=== PATIENT | male | born 1960 | race Caucasian/White ===

== ENCOUNTER 2024-08-02 17:26 | Inpatient (IN) ==
[2024-08-02 17:59] LABS: Basophils # (auto) 0.07 K/uL (0.00-0.20); Basophils % (auto) 0.5 %; Eosinophils # (auto) 0.15 K/uL (0.00-0.50); Hematocrit (blood only) 45.1 % (42.0-52.0); Immature Granulocytes # (auto) 0.09 K/uL (0.01-0.20); Immature Granulocytes % (auto) 0.6 %; Lymphocytes # (auto) 2.03 K/uL (1.20-3.40); Lymphocytes % (auto) 13.5 %; Mean Corpuscular Hemoglobin 28.7 pg (25.0-34.0); Mean Corpuscular Hgb Conc 33.3 g/dL (32.0-36.0); Mean Corpuscular Volume 86.2 fL (80.0-100.0); Mean Platelet Volume 9.5 fL (9.4-12.4); Monocytes # (auto) 1.41 K/uL (0.11-0.59); Monocytes % (auto) 9.4 %; Neutrophils # (auto) 11.31 K/uL (1.40-6.50); Platelet Count 257 K/uL (130-400); RDW Coefficient of Variation 12.9 % (11.5-14.5); RDW Standard Deviation 40.8 fL (36.4-46.3); Red Blood Count 5.23 M/uL (4.70-6.10); White Blood Count 15.06 K/ul (4.8-10.8)
[2024-08-02] MEDS: ONDANSETRON INJ 2 MG/ML 2 ML VIAL ONE (18:12)
[2024-08-02 18:15] LABS: BUN Creatinine Ratio 15.2 (10-20); Calcium 8.9 mg/dl (8.6-10.3); Potassium 3.9 mmol/L (3.5-5.1)
[2024-08-02 18:25] LABS: Partial Thromboplastin Ratio 0.9; Partial Thromboplastin Time 24 Seconds (21-31); Prothrombin Time 10.5 Seconds (9.0-12.0)
[2024-08-02] MEDS: PROPOFOL IV EMULSION 10 MG/ML 20 ML VIAL IV ONE (18:38)
--- NOTE | 2024-08-02 19:19 | XRay Report ---
EXAM: XR ankle RT 2V CLINICAL HISTORY: Ankle trauma, no prior imaging TECHNIQUE: X-ray images of the right ankle were obtained in anteroposterior (AP), and lateral projections. COMPARISON: No prior studies available for comparison. FINDINGS: Bone Structure: Acute displaced impacted fractures are seen at the distal tibial and fibular shafts. Joint Spaces: Joint spaces are normal. No evidence of joint effusion or subluxation. Soft Tissues: Surrounding Soft tissue swelling is noted. Additional Findings: No signs of osteoarthritis, bone spurs, lytic or sclerotic lesions. IMPRESSION: Acute displaced impacted fractures at the distal tibial and fibular shafts with surrounding soft tissue swelling. Disclaimer: A subtle bone abnormality or fracture may not be readily apparent on X-rays, thus, clinical correlation and further imaging, including follow-up CT, MRI, or follow-up X-rays are advised as needed. Electronically signed by Mack Curran 08-02-2024 7:18 PM
--- NOTE | 2024-08-02 19:36 | Orthopedic Consultation ---
Date of Service August 02, 2024 Assessment & Plan (1) Open fracture of right tibia and fibula: He was seen and examined by Dr. Coker in the ER today as well. We did examine the wound, and new dressing applied with betadine soaked gauze, splint maintained, new steve applied and further reduction was performed which improved the alignment clinically. He will be admitted to hospitalist service. Okay to eat/drink today. NPO after midnight for surgery tomorrow (I and D, ORIF of right tib/fib fracture). Continue ancef q 8 hours, elevated, ice to right leg. History of Present Illness Reason for Consultation: . Requesting Physician: . . Mitchell is a 63 year old patient, history of seizure disorder and mental disability, here with his brother (who is power of disability attorney) and his sister in law. He injured his right ankle about 3 hours ago when he slipped on some wet stairs outside his home. He had a twisting injury, and noticed a wound on the medial side of the ankle. EMS was called and he was brought to [facility] ER. Xrays show a distal tib/fib fracture. He was given ancef already. He did undergo a closed reduction and splinting already. Allergies Allergy/AdvReac Type Severity Reaction Status Date / Time No Known Allergies Allergy Verified 08/02/24 18:55 Home Medications Medication Instructions Recorded Confirmed Type lisinopril 5 mg tablet 5 mg PO DAILY 01/30/24 08/02/24 History omega 0-xtd-wfn-fish oil 1,000 mg 1 cap PO DAILY 08/02/24 08/02/24 History (120 mg-180 mg) capsule (Fish Oil) rosuvastatin 20 mg tablet 20 mg PO HS 08/02/24 08/02/24 History Past Med/Surg History Problem List (Updated 08/02/24 @ 20:15 by Kg Cifuentes MD) Open fracture of right tibia and fibula (Acute) Medical History (Updated 08/02/24 @ 20:15 by Kg Cifuentes MD) No pertinent family history HTN (hypertension) Elevated PSA Surgical History (Updated 08/02/24 @ 20:00 by Kg Cifuentes MD) No pertinent past surgical history Social History Smoking Status: Never smoker Hx Alcohol Use: No Hx Substance Use: No Preferred Language: Eritrean Communication Ability: Effective Customer Support Manager Required: No Beliefs That Will Affect Care: None Current Living Situation: Alone Current Living Situation Comment: Family lives nearby Other Information That Helps Us Care for You: No Feels Safe at Home: Yes Safety Concerns: Feels Safe At This Time Assistive Devices: None Review of Systems All systems reviewed & are unremarkable except as noted in HPI & below. Physical Exam . alert, NAD. Right leg: Splinted. Brisk refill to toes. Sensation intact. Able to move his toes appropriately. We did take down some of the splint and dressing. There is a wound on the posteriomedial aspect of the ankle/distal lower leg. Some bleeding. Palpable dorsalis pedis pulse. Some prominence of the tibia at the fracture, tenting the skin some. This was reduced further and new dressing/steve applied. Results & Data Results & Data Laboratory Results . Diagnostic Findings . xrays of the tib/fib show a displaced distal tib/fib fx. improved alignment on the post reduction xray PG Care Time/CCT Total # of Minutes Spent Total Time Spent with Patient: Total time spent is greater than 50% in coordination of care (as documented) at patient's floor/unit and/or counseling patient: Supervising Physician Co-Signing Physician Notes Patient was seen and evaluated with the PA. Agree with documentation. Coding Level of Care Code 04443 IN/OBS CONSULT LVL 4,60M (57 - DECISION FOR SURGERY) Diagnoses Open fracture of right tibia and fibula S82.201B; S82.401B
--- NOTE | 2024-08-02 19:41 | Emergency Department Note ---
History of Present Illness General Chief complaint: Ankle Pain Stated complaint: FALL, ANKLE FRACTURE Time Seen by Provider: 08/02/24 17:40 Source: EMS History of Present Illness Provider complaint: Right ankle pain Onset (ago): hour(s) less than 1 63-year-old male presents emerged part for right ankle pain. Patient reports within the last hour he was Walking and slipped on some wet steps. He reports he fell and fractured his right ankle. Patient ports he did not hit his head. Patient reports pain in his right ankle. Patient reports no headache neck pain hip pain chest or abdominal pain. Home Medications Medication Instructions Recorded Confirmed Type lisinopril 5 mg tablet 5 mg PO DAILY 01/30/24 08/02/24 History omega 6-ajf-rhq-fish oil 1,000 mg 1 cap PO DAILY 08/02/24 08/02/24 History (120 mg-180 mg) capsule (Fish Oil) rosuvastatin 20 mg tablet 20 mg PO HS 08/02/24 08/02/24 History Allergies Allergy/AdvReac Type Severity Reaction Status Date / Time No Known Allergies Allergy Verified 08/02/24 18:55 Past Med/Surg History Problem List (Updated 08/02/24 @ 20:15 by Kg Cifuentes MD) Open fracture of right tibia and fibula (Acute) Medical History (Updated 08/02/24 @ 20:15 by Kg Cifuentes MD) No pertinent family history HTN (hypertension) Elevated PSA Surgical History (Updated 08/02/24 @ 20:00 by Kg Cifuentes MD) No pertinent past surgical history Social History Smoking Status: Unknown if ever smoked Hx Substance Use: No Preferred Language: Greenlandic Feels Safe at Home: Yes Physical Exam Vital Signs Vital Signs - 24 hr 08/02/24 17:39 08/02/24 17:39 08/02/24 17:39 Temperature 36.8 C 36.8 C Temperature Source Oral Oral Pulse Rate 75 Pulse Rate [Right Finger] 75 75 Pulse Rhythm Regular Pulse Rhythm [Right Finger] Regular Regular Pulse Strength Normal Pulse Strength [Right Finger] Normal Normal Respiratory Rate 20 20 20 Respiratory Effort / Characteristics Non-Labored Non-Labored Non-Labored Respiratory Depth Normal Normal Normal Respiratory Pattern Regular Regular Regular Blood Pressure 130/89 Blood Pressure [Right Arm] 130/89 130/89 Blood Pressure Mean 102 Blood Pressure Mean [Right Arm] 102 102 Blood Pressure Position Lying Blood Pressure Position [Right Arm] Lying Lying Pulse Oximetry 96 96 96 Oxygen Delivery Method Room Air Room Air Room Air Oxygen Flow Rate Sepsis Recent Fever Within 48 Hours No Sepsis New/Unexplained Change in Mental Status N/A Sepsis Action Taken by Nursing No Action Required End Tidal CO2 (18-54mmHg) 08/02/24 17:46 08/02/24 18:16 08/02/24 18:21 Temperature Temperature Source Pulse Rate 75 76 72 Pulse Rate [Right Finger] Pulse Rhythm Regular Pulse Rhythm [Right Finger] Pulse Strength Pulse Strength [Right Finger] Respiratory Rate 20 21 16 Respiratory Effort / Characteristics Respiratory Depth Respiratory Pattern Blood Pressure Blood Pressure [Right Arm] 155/87 H 155/93 H Blood Pressure Mean Blood Pressure Mean [Right Arm] Blood Pressure Position Blood Pressure Position [Right Arm] Pulse Oximetry 96 100 100 Oxygen Delivery Method Room Air Nasal Cannula Oxygen Flow Rate 3 Sepsis Recent Fever Within 48 Hours Sepsis New/Unexplained Change in Mental Status Sepsis Action Taken by Nursing End Tidal CO2 (18-54mmHg) 32 32 08/02/24 18:26 08/02/24 18:31 08/02/24 18:31 Temperature Temperature Source Pulse Rate 64 62 Pulse Rate [Right Finger] 62 Pulse Rhythm Pulse Rhythm [Right Finger] Pulse Strength Pulse Strength [Right Finger] Respiratory Rate 19 24 21 Respiratory Effort / Characteristics Non-Labored Spontaneous Respiratory Depth Normal Respiratory Pattern Blood Pressure Blood Pressure [Right Arm] 132/79 137/81 137/81 Blood Pressure Mean Blood Pressure Mean [Right Arm] 99 Blood Pressure Position Blood Pressure Position [Right Arm] Pulse Oximetry 94 100 98 Oxygen Delivery Method Nasal Cannula Nasal Cannula Nasal Cannula Oxygen Flow Rate 6 2 2 Sepsis Recent Fever Within 48 Hours Sepsis New/Unexplained Change in Mental Status Sepsis Action Taken by Nursing End Tidal CO2 (18-54mmHg) 24 25 08/02/24 18:37 08/02/24 18:42 08/02/24 18:48 Temperature Temperature Source Pulse Rate 64 58 L Pulse Rate [Right Finger] 68 Pulse Rhythm Pulse Rhythm [Right Finger] Pulse Strength Pulse Strength [Right Finger] Respiratory Rate 12 14 12 Respiratory Effort / Characteristics Non-Labored Respiratory Depth Normal Respiratory Pattern Agonal Blood Pressure Blood Pressure [Right Arm] 139/75 115/82 133/84 Blood Pressure Mean Blood Pressure Mean [Right Arm] 100 Blood Pressure Position Blood Pressure Position [Right Arm] Pulse Oximetry 99 100 99 Oxygen Delivery Method Room Air Room Air Room Air Oxygen Flow Rate Sepsis Recent Fever Within 48 Hours Sepsis New/Unexplained Change in Mental Status Sepsis Action Taken by Nursing End Tidal CO2 (18-54mmHg) 37 36 31 Physical Exam HENT: Exam performed. - Head: Normocephalic and atraumatic. NECK: Normal range of motion. Neck supple. No JVD present. No spinous process tenderness present. CV: Normal rate, regular rhythm, normal heart sounds and intact distal pulses. There is no peripheral edema. Palpable radial pulses bue. PULM/CHEST: Effort normal and breath sounds normal. No respiratory distress. No stridor. He has no wheezes. He has no rales. ABD: The abdomen is soft.There is no tenderness. There is no rebound, no guarding. MUSC/SKEL: Pelvis stable. Right lower extremity: Obvious deformity of right ankle with approximately 6 cm laceration of the medial aspect. Palpable DP and PT pulses. Sensation intact. NEURO: Motor and sensation grossly intact Procedures Free Text Procedures Procedure note: Procedure: Reduction of right lower extremity fracture Permit: Procedure, benefit, risks including those of bleeding infection neurovascular injury and alternatives were explained to the patient who voiced understanding information. Questions were sought and answered. Patient agreed to proceed with the reduction. Permit signed and on the chart. Indication: Open right lower extremity fracture Physicians: Esau Description: Patient was sedated. See Dr. Willis's note. Patient was flexed at the knee and then countertraction and traction were applied to improve the patient's anatomic alignment. Complications: none Estimated blood loss: 10 ccs Disposition: Patient will be admitted to the hospital Course Course 174: The patient was evaluated in room C7. A complete history and physical exam was performed Cardiac monitoring: An order was placed for continuous cardiac monitoring. The monitor shows a rate of 80 with sinus rhythm interpreted by me 1837: Patient's lower extremity was reduced. See procedure note. See Dr. Willis sedation note. Spoke with orthopedics Nitish who states he will be in to evaluate the patient. 1915: Dr. Coker and Nitish at bedside evaluated the patient. They request that the patient be admitted to the hospitalist team they will operate on the patient tomorrow Administered Medications Discontinued Medications Ondansetron HCl (Ondansetron Inj 2 Mg/Ml 2 Ml Vial) Confirm Administered Dose 4 mg .ROUTE .STK-MED ONE Stop: 08/02/24 18:11 Last Admin: 08/02/24 18:12 Dose: 4 mg Documented By: LANCE Propofol (Propofol Iv Emulsion 10 Mg/Ml 20 Ml Vial) Confirm Administered Dose 200 mg IV .STK-MED ONE Stop: 08/02/24 18:10 Last Admin: 08/02/24 18:38 Dose: 100 mg Documented By: [id number] Co-signed By: FLORA Medical Decision Making Laboratory Data Attestation: I reviewed the patient's lab results. 08/02/24 17:40 08/02/24 17:40 Lab Results 08/02/24 Range/Units 17:40 WBC 15.06 H (4.8-10.8) K/ul RBC 5.23 (4.70-6.10) M/uL Hgb 15.0 (14.0-18.0) g/dl Hct 45.1 (42.0-52.0) % MCV 86.2 (80.0-100.0) fL MCH 28.7 (25.0-34.0) pg MCHC 33.3 (32.0-36.0) g/dL RDW Std Deviation 40.8 (36.4-46.3) fL RDW Coeff of Karol 12.9 (11.5-14.5) % Plt Count 257 (130-400) K/uL MPV 9.5 (9.4-12.4) fL Immature Gran % (Auto) 0.6 % Neut % (Auto) 75.0 % Lymph % (Auto) 13.5 % [place] % (Auto) 9.4 % Eos % (Auto) 1.0 % Baso % (Auto) 0.5 % Neut # (Auto) 11.31 H (1.40-6.50) K/uL Lymph # (Auto) 2.03 (1.20-3.40) K/uL [place] # (Auto) 1.41 H (0.11-0.59) K/uL Eos # (Auto) 0.15 (0.00-0.50) K/uL Baso # (Auto) 0.07 (0.00-0.20) K/uL Immature Gran # (Auto) 0.09 (0.01-0.20) K/uL PT 10.5 (9.0-12.0) Seconds INR 1.0 (0.9-1.1) APTT 24 (21-31) Seconds PTT Ratio 0.9 Sodium 138 (136-145) mmol/L Potassium 3.9 (3.5-5.1) mmol/L Chloride 103 (98-107) mmol/L Carbon Dioxide 29 (21-32) mmol/L Anion Gap 6 (3-11) BUN 19 (6-23) mg/dl Creatinine 1.25 (0.6-1.4) mg/dl Est Cr Clr Drug Dosing 58.0 ml/min eGFR 65.51 BUN/Creatinine Ratio 15.2 (10-20) Glucose 113 H (70-99(Fasting)) mg/dl Calcium 8.9 (8.6-10.3) mg/dl Imaging Data Attestation: I personally reviewed and interpreted this imaging study as follows: My Impression: Ankle x-ray #1: Fracture of the tibia and fibula. Medial displacement Ankle x-ray #2: Improvement of the fracture and dislocation Radiologist's Impression: Ankle X-Ray 08/02/24 17:33 EXAM: XR ankle RT 2V CLINICAL HISTORY: Ankle trauma, no prior imaging TECHNIQUE: X-ray images of the right ankle were obtained in anteroposterior (AP), and lateral projections. COMPARISON: No prior studies available for comparison. FINDINGS: Bone Structure: Acute displaced impacted fractures are seen at the distal tibial and fibular shafts. Joint Spaces: Joint spaces are normal. No evidence of joint effusion or subluxation. Soft Tissues: Surrounding Soft tissue swelling is noted. Additional Findings: No signs of osteoarthritis, bone spurs, lytic or sclerotic lesions. IMPRESSION: Acute displaced impacted fractures at the distal tibial and fibular shafts with surrounding soft tissue swelling. Disclaimer: A subtle bone abnormality or fracture may not be readily apparent on X-rays, thus, clinical correlation and further imaging, including follow-up CT, MRI, or follow-up X-rays are advised as needed. Electronically signed by Mack Curran 08-02-2024 7:18 PM [facility] Narrative 1740: The patient was evaluated in room C7. A complete history and physical exam was performed Cardiac monitoring: An order was placed for continuous cardiac monitoring. The monitor shows a rate of 80 with sinus rhythm interpreted by me 1837: Patient's lower extremity was reduced. See procedure note. See Dr. Willis sedation note. Spoke with orthopedics Nitish who states he will be in to evaluate the patient. 191: Dr. Coker and Nitish at bedside evaluated the patient. They request that the patient be admitted to the hospitalist team they will operate on the patient tomorrow Impression & Plan Open fracture of right tibia and fibula Discharge Plan Visit Data Chief Complaint: Ankle Pain Stated Complaint: FALL, ANKLE FRACTURE ED Provider: Kg Cifuentes Discharge Problem: Open fracture of right tibia and fibula Patient Disposition: Admitted As Inpatient Forms Stand Alone Forms: My [facility] [employer] Prescriptions Prescriptions: No Action lisinopril 5 mg tablet 5 mg PO DAILY rosuvastatin 20 mg tablet 20 mg PO HS omega 7-pit-fih-fish oil [Fish Oil] 1,000 (120-180) mg Capsule 1 cap PO DAILY Referrals Referrals: Caleb Alegre CRNP [Primary Care Provider] -
--- NOTE | 2024-08-02 19:42 | Emergency Department Note ---
Pre Sedation Assessment Vital Signs Temp Pulse Pulse Resp BP BP Pulse Ox 08/02/24 18:48 68 12 133/84 99 08/02/24 18:42 58 L 14 115/82 100 08/02/24 18:37 64 12 139/75 99 08/02/24 18:31 62 21 137/81 98 08/02/24 18:31 62 24 137/81 100 08/02/24 18:26 64 19 132/79 94 08/02/24 18:21 72 16 155/93 H 100 08/02/24 18:16 76 21 155/87 H 100 08/02/24 17:46 75 20 96 08/02/24 17:39 36.8 C 75 20 130/89 96 08/02/24 17:39 36.8 C 75 20 130/89 96 08/02/24 17:39 75 20 130/89 96 O2 Del Method O2 Flow Rate 08/02/24 18:48 Room Air 08/02/24 18:42 Room Air 08/02/24 18:37 Room Air 08/02/24 18:31 Nasal Cannula 2 08/02/24 18:31 Nasal Cannula 2 08/02/24 18:26 Nasal Cannula 6 08/02/24 18:21 Nasal Cannula 3 08/02/24 18:16 08/02/24 17:46 Room Air 08/02/24 17:39 Room Air 08/02/24 17:39 Room Air 08/02/24 17:39 Room Air Cardiovascular RRR, no murmur, no edema + regular rate + S1 normal and + S2 normal + capillary refill normal Respiratory normal respiratory effort, lungs clear to auscultation Pre-Sedation Airway Assessment Smoking Status: Unknown if ever smoked Hx Sleep Apnea: No Hx Difficult Intubation: No Short, Thick Neck: No Thyromental Distance: > or= 3.5 Finger Breadths Oral Cavity: + WNL Mallampati Class: I ASA: ASA2 NPO Status Date of Last Intake of Fluids: 08/02/24 Time of Last Intake of Fluids: 12:00 Date of Last Intake of Solid Food: 08/02/24 Time of Last Intake of Solid Foods: 12:00 Procedure Planning Contraindications for Sedation: none Notes The planned sedation has been discussed with the patient. Informed Consent was obtained. I have identified the patient, determined the appropriateness of sedation and have assessed the patient immediately prior to the procedure. All medicine(s) and interventions are by my order.
--- NOTE | 2024-08-02 19:43 | Emergency Department Note ---
Post Sedation Assessment Vital Signs Temp Pulse Pulse Resp BP BP Pulse Ox 08/02/24 18:48 68 12 133/84 99 08/02/24 18:42 58 L 14 115/82 100 08/02/24 18:37 64 12 139/75 99 08/02/24 18:31 62 21 137/81 98 08/02/24 18:31 62 24 137/81 100 08/02/24 18:26 64 19 132/79 94 08/02/24 18:21 72 16 155/93 H 100 08/02/24 18:16 76 21 155/87 H 100 08/02/24 17:46 75 20 96 08/02/24 17:39 36.8 C 75 20 130/89 96 08/02/24 17:39 36.8 C 75 20 130/89 96 08/02/24 17:39 75 20 130/89 96 O2 Del Method O2 Flow Rate 08/02/24 18:48 Room Air 08/02/24 18:42 Room Air 08/02/24 18:37 Room Air 08/02/24 18:31 Nasal Cannula 2 08/02/24 18:31 Nasal Cannula 2 08/02/24 18:26 Nasal Cannula 6 08/02/24 18:21 Nasal Cannula 3 08/02/24 18:16 08/02/24 17:46 Room Air 08/02/24 17:39 Room Air 08/02/24 17:39 Room Air 08/02/24 17:39 Room Air Recovery Score Activity: Moves 4 extremities Respiration: Deep Breath/Cough Circulation: +/-20% PreAnes Value Consciousness: Fully Awake Oxygen Saturation: > 92% On Room Air Post Anesthesia Score: 10 Post Sedation Plan On clinical assessment, the patient appears to have tolerated the sedation without complications. Patient is recovering as anticipated. Patient will continue to be monitored by nursing and may be discharged when sedation discharge criteria are met per below protocol. Upon Completions of procedure up to 15 minutes continue every 5 minute vital signs and the P.A.R. score; then discharge to a Phase I or Fast Track to Phase II per the following guidelines: * Discharge Patient to appropriate Phase II area if PAR is 8 or greater or return to pre- procedure baseline. The post - procedure orders will be as directed. * If PAR score is less than 8 or not return to pre-procedure baseline then patient will follow Phase I monitoring till PAR is reached for Phase II. The Phase I may be done in procedure room or may call to secure a Phase I area. * If naloxone or flumazenil are used for reversal, hold in Phase I for continued monitoring from when last reversal dose was given for a minimum of 60 minutes or longer pending the nurse and/or physician discretion of patient condition before discharge to Phase II. Please call the Sedation Physician to re-evaluate and complete post-note for discharge to Phase II area. Do NOT discharge from procedure sedation or Phase 1 until post- sedation evaluation note is complete by procedure /sedation MD Sedation Discharge Instructions to be given to the patient at discharge to home. Sedation Data Sedation Times Sedation Start Date: 08/02/24 Sedation Start Time: 18:18 Sedation End Time: 18:26 Procedure Times Procedure Start Time:: 18:18 Procedure End Time: 18:26
--- NOTE | 2024-08-02 19:45 | Emergency Department Note ---
ED Visit Note Was asked to assist in a sedation for open ankle reduction. Reportedly patient had slipped and fallen with resultant fracture. Please see Dr. Cifuentes's notes for further details. Patient was given total of 100 mg of IV propofol over the course of sedation. Initially started with 40 mg needing an additional 30 mg shortly afterwards. While splinting like, patient needed additional 30 mg as he was still somewhat awake and moving his extremities. Patient fully sedated, patient reduced and splinted. Patient then awoken with normal vital signs, back to his baseline without abnormalities.
--- NOTE | 2024-08-02 20:22 | History & Physical Report ---
Date of Service August 02, 2024 Assessment & Plan (1) Open fracture of right tibia and fibula: Plan: Traumatic right open tibial fibula fracture secondary to fall Hypertension, stable Hyperlipidemia statin Rx history of childhood seizures, stable off maintenance medications Prediabetes, hemoglobin A1c of 5.7 from last year as per records PSA elevation, patient follows with [facility] Intellectual impairment Admit to [facility] Orthopedics consult Re: Right tibia-fibula fracture ([place] [facility] [place] and ORIF contemplated tomorrow.) Acceptable risk for cardiac complications resulting from prospective procedure Revised Cardiac Risk Index (RCRI): 1. High-risk type of surgery (examples include vascular and any open intraperitoneal or intrathoracic procedures). No 2. History of ischemic heart disease (history of myocardial infarction or positive exercise test, current compliant of chest pain considered to be secondary to myocardial ischemia, use of nitrate therapy, or ECG with pathological Q waves; do not count prior coronary revascularization procedure unless one of the other criteria for ischemic heart disease is present). No 3. History of heart failure. No 4. History of cerebrovascular disease. No 5. Diabetes mellitus requiring treatment with insulin. No 6. Preoperative serum creatinine >2.0. No Pt has revised cardiac index score of 0 points. (Class I Risk.) 3.9 % 30-day risk of , [place], or cardiac arrest. Acceptable risk for cardiac complications for contemplated surgery. DVT prophylaxis. SCDs Re: Bleeding RLE wound Full code Patient brother requesting updates providers. Mr. Ke Fajardo, contact #[phone]. Text document was generated using [employer] voice recognition software. It may contain grammatical or spelling errors. Kindly contact undersigned for clarification of any documentation item in question. History of Present Illness Chief Complaint: Fall, right ankle pain Primary Care Provider: MARGOT Hazel History obtained from patient, family, and records. Medical history significant for hypertension, hyperlipidemia, prediabetes, PSA elevation as per records, history of childhood seizures, intellectual impairment. Patient slipped down steps outside his home today. Patient twisted right ankle resulting in bleeding wound following fall. No head trauma, LOC, chest pain, SOB. Patient able to crawl back into his house and call family. Patient brought to ER by EMS. Closed reduction of right ankle fracture done under sedation. Medical History as above Surgical History : Tonsillectomy Family History : Heart disease, DM Personal/Social history : Non-smoker, no EtOH intake, retired store employee Baseline Functionality : able to do housework at home without rest/exertional chest pain, S OB prior to injury Allergies Allergy/AdvReac Type Severity Reaction Status Date / Time No Known Allergies Allergy Verified 08/02/24 18:55 Home Medications Medication Instructions Recorded Confirmed Type lisinopril 5 mg tablet 5 mg PO DAILY 01/30/24 08/02/24 History omega 7-bnv-dix-fish oil 1,000 mg 1 cap PO DAILY 08/02/24 08/02/24 History (120 mg-180 mg) capsule (Fish Oil) rosuvastatin 20 mg tablet 20 mg PO HS 08/02/24 08/02/24 History Past Med/Surg History Problem List (Updated 08/02/24 @ 20:15 by Kg Cifuentes MD) Open fracture of right tibia and fibula (Acute) Medical History (Updated 08/02/24 @ 20:15 by Kg Cifuentes MD) No pertinent family history HTN (hypertension) Elevated PSA Surgical History (Updated 08/02/24 @ 20:00 by Kg Cifuentes MD) No pertinent past surgical history Social History Smoking Status: Unknown if ever smoked Hx Substance Use: No Preferred Language: Estonian Feels Safe at Home: Yes Review of Systems Review of Systems: As per HPI, all other systems reviewed and negative Physical Exam Physical Exam: GENERAL: Comfortable, pleasant, no respiratory distress SKIN: Normal color, warm HEENT: [place] palpebral conjunctivae, no ptosis, moist buccal mucosa NECK : Supple, no tenderness CHEST : CTA, no tenderness HEART : RRR, no obvious murmurs ABDOMEN: Some distention, nontender EXTREMITIES : RLE immobilizer in place, palpable pulses, no other conspicuous deformities noted NEUROLOGIC : Coherent, no facial asymmetry, no other gross focality Results & Data Results & Data Vital Signs (Past 12 Hours) Vital Signs Temp Pulse Pulse Resp BP BP Pulse Ox 08/02/24 18:48 68 12 133/84 99 08/02/24 18:42 58 L 14 115/82 100 08/02/24 18:37 64 12 139/75 99 08/02/24 18:31 62 21 137/81 98 08/02/24 18:31 62 24 137/81 100 08/02/24 18:26 64 19 132/79 94 08/02/24 18:21 72 16 155/93 H 100 08/02/24 18:16 76 21 155/87 H 100 08/02/24 17:46 75 20 96 08/02/24 17:39 36.8 C 75 20 130/89 96 08/02/24 17:39 36.8 C 75 20 130/89 96 08/02/24 17:39 75 20 130/89 96 O2 Del Method O2 Flow Rate 08/02/24 18:48 Room Air 08/02/24 18:42 Room Air 08/02/24 18:37 Room Air 08/02/24 18:31 Nasal Cannula 2 08/02/24 18:31 Nasal Cannula 2 08/02/24 18:26 Nasal Cannula 6 08/02/24 18:21 Nasal Cannula 3 08/02/24 18:16 08/02/24 17:46 Room Air 08/02/24 17:39 Room Air 08/02/24 17:39 Room Air 08/02/24 17:39 Room Air Laboratory Results Laboratory Results WBC 15.06 K/ul (4.8-10.8) H 08/02/24 17:40 RBC 5.23 M/uL (4.70-6.10) 08/02/24 17:40 Hgb 15.0 g/dl (14.0-18.0) 08/02/24 17:40 Hct 45.1 % (42.0-52.0) 08/02/24 17:40 MCV 86.2 fL (80.0-100.0) 08/02/24 17:40 MCH 28.7 pg (25.0-34.0) 08/02/24 17:40 MCHC 33.3 g/dL (32.0-36.0) 08/02/24 17:40 RDW Std Deviation 40.8 fL (36.4-46.3) 08/02/24 17:40 RDW Coeff of Karol 12.9 % (11.5-14.5) 08/02/24 17:40 Plt Count 257 K/uL (130-400) 08/02/24 17:40 MPV 9.5 fL (9.4-12.4) 08/02/24 17:40 Immature Gran % (Auto) 0.6 % 08/02/24 17:40 Neut % (Auto) 75.0 % 08/02/24 17:40 Lymph % (Auto) 13.5 % 08/02/24 17:40 [place] % (Auto) 9.4 % 08/02/24 17:40 Eos % (Auto) 1.0 % 08/02/24 17:40 Baso % (Auto) 0.5 % 08/02/24 17:40 Neut # (Auto) 11.31 K/uL (1.40-6.50) H 08/02/24 17:40 Lymph # (Auto) 2.03 K/uL (1.20-3.40) 08/02/24 17:40 [place]hin # (Auto) 1.41 K/uL (0.11-0.59) H 08/02/24 17:40 Eos # (Auto) 0.15 K/uL (0.00-0.50) 08/02/24 17:40 Baso # (Auto) 0.07 K/uL (0.00-0.20) 08/02/24 17:40 Immature Gran # (Auto) 0.09 K/uL (0.01-0.20) 08/02/24 17:40 PT 10.5 Seconds (9.0-12.0) 08/02/24 17:40 INR 1.0 (0.9-1.1) 08/02/24 17:40 APTT 24 Seconds (21-31) 08/02/24 17:40 PTT Ratio 0.9 08/02/24 17:40 Sodium 138 mmol/L (136-145) 08/02/24 17:40 Potassium 3.9 mmol/L (3.5-5.1) 08/02/24 17:40 Chloride 103 mmol/L (98-107) 08/02/24 17:40 Carbon Dioxide 29 mmol/L (21-32) 08/02/24 17:40 Anion Gap 6 (3-11) 08/02/24 17:40 BUN 19 mg/dl (6-23) 08/02/24 17:40 Creatinine 1.25 mg/dl (0.6-1.4) 08/02/24 17:40 Est Cr Clr Drug Dosing 58.0 ml/min 08/02/24 17:40 eGFR 65.51 08/02/24 17:40 BUN/Creatinine Ratio 15.2 (10-20) 08/02/24 17:40 Glucose 113 mg/dl (70-99(Fasting)) H 08/02/24 17:40 Calcium 8.9 mg/dl (8.6-10.3) 08/02/24 17:40 Diagnostic Findings EKG as per my interpretation :Rate 75, NSR, LAD, LAFB, no ischemia
[2024-08-02] MEDS ORDERED: PROMETHAZINE 6.25 MG/50.25 ML BAG IV PRN (20:24)
--- NOTE | 2024-08-02 20:46 | XRay Report ---
EXAM: XR ankle RT 2V CLINICAL HISTORY: Open fx reduction TECHNIQUE: X-ray images of the right ankle were obtained in anteroposterior (AP), and mortise projections. COMPARISON: No prior studies available for comparison. FINDINGS: Bone Structure: Acute displaced impacted fractures are seen at the distal tibial and fibular shafts are still seen. Post reduction decreased lateral angulation, however, anterior angulation and displaced bone fragments are still seen. Joint Spaces: Joint spaces are normal. No evidence of joint effusion or subluxation. Soft Tissues: Soft tissues appear normal and unremarkable. No soft tissue swelling, calcifications, or foreign bodies noted. Additional Findings: No signs of osteoarthritis, bone spurs, lytic or sclerotic lesions. IMPRESSION: Acute displaced impacted fractures are seen at the distal tibial and fibular shafts are still seen. Post reduction decreased lateral angulation, however, anterior angulation and displaced bone fragments are still seen. Disclaimer: A subtle bone abnormality or fracture may not be readily apparent on X-rays, thus clinical correlation and further imaging including follow-up CT, MRI, or follow-up X-rays are advised as needed. Electronically signed by aMck Curran 08-02-2024 8:46 PM
[2024-08-02] MEDS: oxyCODONE HCL IR 5 MG TAB (IMMEDIATE RELEASE) PO PRN (21:03)
[2024-08-02] MEDS: SODIUM CHLORIDE 0.9% 1,000 ML IV ONE (22:18)
[2024-08-02] MEDS: LORazepam 0.5 MG TAB PO PRN (22:18)
[2024-08-02] MEDS: ceFAZolin 2000MG 2,000 MG/15 ML SYR IV SCH (22:19)
[2024-08-02] MEDS: ROSUVASTATIN CALCIUM 20 MG TAB PO SCH (22:19)
[2024-08-02] MEDS: ACETAMINOPHEN 325 MG TAB PO PRN (23:27)
[2024-08-03 06:55] LABS: Basophils # (auto) 0.03 K/uL (0.00-0.20); Basophils % (auto) 0.3 %; Eosinophils # (auto) 0.03 K/uL (0.00-0.50); Eosinophils % (auto) 0.3 %; Hematocrit (blood only) 40.1 % (42.0-52.0); Hemoglobin 13.6 g/dl (14.0-18.0); Immature Granulocytes # (auto) 0.05 K/uL (0.01-0.20); Immature Granulocytes % (auto) 0.4 %; Lymphocytes # (auto) 1.37 K/uL (1.20-3.40); Lymphocytes % (auto) 12.1 %; Mean Corpuscular Hgb Conc 33.9 g/dL (32.0-36.0); Mean Corpuscular Volume 85.5 fL (80.0-100.0); Mean Platelet Volume 9.7 fL (9.4-12.4); Neutrophils # (auto) 8.13 K/uL (1.40-6.50); Neutrophils % (auto) 71.9 %; Platelet Count 237 K/uL (130-400); RDW Coefficient of Variation 13.1 % (11.5-14.5); RDW Standard Deviation 40.4 fL (36.4-46.3); Red Blood Count 4.69 M/uL (4.70-6.10); White Blood Count 11.31 K/ul (4.8-10.8)
[2024-08-03 07:23] LABS: BUN Creatinine Ratio 13.2 (10-20); Calcium 8.5 mg/dl (8.6-10.3); Creatinine Clr Calc Pharmacy 63.6 ml/min; Potassium 4.3 mmol/L (3.5-5.1)
[2024-08-03] MEDS: lisinopril 5 MG TAB PO SCH (10:08)
[2024-08-03] MEDS ORDERED: PROPOFOL IV EMULSION 10 MG/ML 20 ML VIAL IV ONE (15:50)
[2024-08-03] MEDS ORDERED: LIDOCAINE 2% 2 ML VIAL/AMP(20MG/ML) INFIL ONE ×2 (15:50)
[2024-08-03] MEDS ORDERED: ROCURONIUM BROMIDE 10 MG/ML 5 ML VIAL IV ONE (15:50)
[2024-08-03] MEDS ORDERED: DEXAMETHASONE SOD INJ 4 MG/ML VIAL ONE (16:34)
[2024-08-03] MEDS ORDERED: ONDANSETRON INJ 2 MG/ML 2 ML VIAL ONE (16:34)
[2024-08-03] MEDS ORDERED: SUGAMMADEX SODIUM 200 MG/2 ML VIAL IV ONE (16:35)
[2024-08-03] MEDS ORDERED: GLYCOPYRROLATE 0.2 MG/ML VIAL ONE (16:37)
[2024-08-03] MEDS ORDERED: MIDAZOLAM HCL 1 MG/ML 2ML VIAL ONE (16:38)
[2024-08-03] MEDS ORDERED: fentaNYL citrate PF 100 MCG/2 ML VIAL ONE ×2 (16:38→17:22)
--- NOTE | 2024-08-03 16:49 | History & Physical Bridge Note ---
Date of Service August 03, 2024 History & Physical Bridge Note I have examined the patient, reviewed the History & Physical and in the interval since the performance of the History & Physical I have noted the following changes of clinical significance: no changes noted
--- NOTE | 2024-08-03 16:58 | Anesthesiology Consultation ---
Date of Service August 03, 2024 Assessment & Plan Chart Review Chart Review: Acceptable Risk for Surgery Consults Requested none History Surgery Operation Date: 08/03/24 09:25 Proposed Procedures p Right Tib/Fib Fracture Open Reduction Internal Fixation - Hilario Coker MD Height/Weight Height: 5 ft 7 in Weight: 78.381 kg Allergies Allergy/AdvReac Type Severity Reaction Status Date / Time No Known Allergies Allergy Verified 08/02/24 18:55 Medications Home Medications Medication Instructions Recorded Confirmed Last Taken lisinopril 5 mg tablet 5 mg PO DAILY 01/30/24 08/02/24 08/02/24 omega 6-qsb-tbe-fish oil 1,000 mg 1 cap PO DAILY 08/02/24 08/02/24 08/02/24 (120 mg-180 mg) capsule (Fish Oil) rosuvastatin 20 mg tablet 20 mg PO HS 08/02/24 08/02/24 08/01/24 Active Medications Generic Name Dose Route Start Last Admin Trade Name Freq PRN Reason Stop Dose Admin Acetaminophen 650 mg 08/02/24 20:24 08/03/24 11:13 Acetaminophen 325 Mg Tab PO 09/01/24 20:23 650 mg QID PRN Administration pain/fever Cefazolin Sodium 2,000 mg in 15 mls @ 3.75 mls/min 08/02/24 21:00 08/03/24 12:45 Ancef 2000mg IV 09/13/24 20:59 3.75 mls/min Q8H AMERICO Administration Lisinopril 5 mg 08/03/24 09:00 08/03/24 10:08 Lisinopril 5 Mg Tab PO 09/02/24 08:59 5 mg DAILY AMERICO Administration Lorazepam 0.5 mg 08/02/24 20:24 08/02/24 22:18 Lorazepam 0.5 Mg Tab PO 09/01/24 20:23 0.5 mg TID PRN Administration Anxiety Oxycodone HCl 5 mg 08/02/24 20:24 08/03/24 04:44 Oxycodone Hcl Ir 5 Mg Tab (Immediate Release) PO 08/16/24 20:23 5 mg Q4H PRN Administration Pain Rosuvastatin Calcium 20 mg 08/02/24 21:00 08/02/24 22:19 Rosuvastatin Calcium 20 Mg Tab PO 09/01/24 20:59 20 mg HS AMERICO Administration NPO Date Last Intake of Fluids: 08/03/24 Time Last Intake of Fluids: 07:00 Last Intake of Fluids Comment: sips with medications Date Last Intake of Solids: 08/02/24 Past Medical History Medical History (Updated 08/02/24 @ 20:15 by Kg Cifuentes MD) No pertinent family history HTN (hypertension) Elevated PSA Past Surgical History Surgical History (Updated 08/02/24 @ 20:00 by Kg Cifuentes MD) No pertinent past surgical history Social History Smoking Status: Never smoker Hx Alcohol Use: No Hx Substance Use: No substance use type: does not use Physical Exam Vital Signs Last Vital Signs Temp 36.4 C L 08/03/24 15:44 Pulse 92 H 08/03/24 15:44 Resp 20 08/03/24 15:44 BP 130/90 08/03/24 15:44 Pulse Ox 96 08/03/24 15:44 O2 Del Method Room Air 08/03/24 15:44 O2 Flow Rate 2 08/02/24 18:31 Testing Laboratory Results 08/03/24 06:10 08/03/24 06:10 PT 10.5 Seconds (9.0-12.0) 08/02/24 17:40 INR 1.0 (0.9-1.1) 08/02/24 17:40 APTT 24 Seconds (21-31) 08/02/24 17:40 Blood Type A Negative 08/03/24 06:10 Antibody Screen NEGATIVE 08/03/24 06:10
[2024-08-03] MEDS ORDERED: HYDROmorphone INJ 2 MG/ML SYR/VIAL IV PRN (16:59)
[2024-08-03] MEDS ORDERED: ONDANSETRON INJ 2 MG/ML 2 ML VIAL IV PRN (16:59)
[2024-08-03] MEDS ORDERED: ePHEDrine sulfate 50 MG/ML AMP IV PRN (16:59)
[2024-08-03] MEDS ORDERED: ATROPINE SULFATE 0.1 MG/ML 10ML SYR IV PRN (16:59)
[2024-08-03] MEDS ORDERED: PROMETHAZINE HCL 6.25 MG in SODIUM CHLORIDE 0.9% 50 ML IV PRN (16:59)
[2024-08-03] MEDS ORDERED: fentaNYL citrate PF 100 MCG/2 ML VIAL IV PRN (16:59)
[2024-08-03] MEDS: TRANEXAMIC ACID / 0.7% NACL 1,000 MG/100 ML BAG IV ONE (17:06)
[2024-08-03] MEDS: TRANEXAMIC ACID / 0.7% NACL 1000MG/100ML BAG IV ONE ×2 (18:06→22:04)
[2024-08-03] MEDS ORDERED: HYDROmorphone INJ 2 MG/ML SYR/VIAL ONE (19:08)
--- NOTE | 2024-08-03 19:17 | Hospitalist Progress Note ---
Date of Service August 03, 2024 Assessment & Plan (1) Open fracture of right tibia and fibula: Plan: per previous hospitalist notes with addendum: Traumatic right open tibial fibula fracture secondary to fall Hypertension, stable Hyperlipidemia statin Rx history of childhood seizures, stable off maintenance medications Prediabetes, hemoglobin A1c of 5.7 from last year as per records PSA elevation, patient follows with [facility] Intellectual impairment 08/03 Patient for surgical intervention today Stable overall No medical contraindication to surgery monitor blood pressure, labs tomorrow PT OT evaluation DVT prophylaxis. SCDs Re: Bleeding RLE wound Full code plan of care discussed with patient and brothers, sisters in law at bedside, in detail and at length all questions answered they are understanding, agreeable, comfortable with the plan of care Admission and Anticipated Discharge Date Admission Date: August 02, 2024 Subjective follow-up for right tib-fib fracture Seen resting in bed, comfortable, not in distress Has some mild discomfort over the right lower Leg Anxious about upcoming surgery, reassured No chest pain, shortness of breath, palpitations, dizziness, nausea No other new symptoms Review of Systems Review of Systems: all noted and negative except for above Physical Exam Physical Exam: General- oriented x 3, not in distress, speaks in sentences with no effort or accessory muscle use Eyes- anicteric Neck- no JVD Lungs- clear breath sounds bilaterally, no rales/wheezes Heart- normal rate, regular rhythm; no murmurs Abdomen- normal bowel sounds, nondistended, soft, nontender Extremities- no pretibial edema, no calf tenderness right lower extremity: Splint in place Neuro- alert, oriented x 3; no gross focal neurologic deficits Skin- warm & dry Results & Data Results & Data Vital Signs (Past 12 Hours) Vital Signs Temp Pulse Resp BP Pulse Ox O2 Del Method 08/03/24 15:44 36.4 C L 92 H 20 130/90 96 Room Air 08/03/24 13:50 36.8 C 75 16 116/76 96 Room Air all noted and reviewed including below
[2024-08-03] MEDS ORDERED: ceFAZolin 330 MG/ML 1 GM VIAL ONE (21:37)
--- NOTE | 2024-08-03 21:55 | Electrocardiogram Report ---
Test Reason : Blood Pressure : */* mmHG Vent. Rate : 73 BPM Atrial Rate : 73 BPM P-R Int : 142 ms QRS Dur : 96 ms QT Int : 400 ms P-R-T Axes : 37 29 65 degrees QTcB Int : 440 ms Sinus rhythm No previous ECGs available Confirmed by Bryan Hernandez ([id number]) on 08/03/2024 9:54:35 PM Referred By: REFERRED SELF Confirmed By: Bryan Hernandez
[2024-08-03] MEDS: TRANEXAMIC ACID 100 MG/ML 10 ML VIAL IV ONE (22:02)
--- NOTE | 2024-08-03 22:58 | Operative Report ---
PG Post Operative Report Pre & Post Diagnosis Operation Date: 08/03/24 09:25 Pre-Op Diagnosis: Open fracture of right tibia and fibula Post-Op Diagnosis: Open fracture of right tibia and fibula I identified the patient and participated in the time-out.: Yes Procedure Operation Date: 08/03/24 09:25 Actual Procedures p Right Open Tibia and Fibula Irrigation and Debridement and Open Reduction Internal Fixation, right fibula fracture open reduction internal fixation, application of vacuum-assisted closure device to traumatic wound (Right) - Hilario Coker MD Surgeon Hilario Coker MD Buffer Nickel None Estimated Blood Loss 50 Findings See Below Gustilo Jasper grade 2 open tibia fracture by wound size with clean wound. The tibia fracture was addressed with a separate anterior approach and open red uction and internal fixation using a Synthes anterolateral distal tibia locking plate with interfragmentary screw fixation. Posterior medial traumatic wound with mild skin loss and inability to closure due to swelling. 6 x 3 cm wound was treated with a vacuum-assisted closure. Separate closed segmental fibula fracture fixed with a bridging 10 hole one third tubular plate with 2 interfragmentary screws at either segment. Specimens none Anesthesia Type General Complications none Disposition Accompanied Patient To Recovery: No Disposition: Recovery Room Indications 63-year-old male sustained twisting leg injury stepping down off his back deck stairs resulting in severe deformity and open wound. He was managed in the ER for an open distal tibia and separate close fibula fracture was diagnosed. He was treated in the emergency room with a cleansing of the wound and packing with iodine dressing and provisional reduction and a lower leg splint. Given the open nature of the injury, I recommend immediate antibiotic therapy and planning for surgical management the following day. I reviewed the risk, benefits and alternatives to treatment of his open tibia fracture with irrigation debridement and ORIF in detail, as outlined in the preoperative note. The patient and his power of prosecuting attorney, brother, were in agreement that they should proceed with surgical care as I had described. Informed consent was obtained in the preoperative holding area. Description of Procedure On the day of surgery, the patient was greeted in the preoperative holding area. The informed consent was reviewed and confirmed by myself and the patient. The patient identified the surgical site and was marked by me. The patient was then turned over to anesthesia. Patient was then taken to the operating room and placed upon the OR table. Anesthesia was induced. The airway was secured. A 3 blanket bump was placed under the ipsilateral hip. The bone foam was placed onto the operative extremity and fixed to the table. All bony prominences well- padded. A nonsterile tourniquet placed on the operative thigh. The extremity then prepped and draped in usual sterile fashion for ankle fracture surgery using a Betadine scrub and paint due to the open injury. Surgical timeout was called by the circulating nurse and verified all present. Antibiotics and TXA had been infused and equipment was available and functional. Antibiotics were on schedule it was started as open tibia fracture prophylaxis. Adequate fluoroscopic views were available. Attention was first directed to a thorough irrigation and debridement. He had approximately 8 cm posterior medial leg wound that was obliquely oriented. There was some soft tissue compromise of the skin that was lacerated at the edges. A 1 mm debridement was performed around the wound edge. There was significant fascial damage that was debrided. There was no gross contamination. The bone ends were able to be delivered into that posterior medial wound, particularly the proximal fragment. There is very minimal periosteal stripping. 9 L of saline irrigation through high flow was used to cleanse the wound after a sharp debridement down to the fracture site. Comminution was present and debrided. There was a larger butterfly fragment from the tibia that was salvaged and thoroughly rinsed on the back table and soaked in iodine solution. There was no communication to the fibula side. After sharp debridement and volume this irrigation, the leg was wrapped in clean towels, and elevated well fresh drapes were applied. Previous instruments and set up were discarded. With a clean field and a thoroughly irrigated and debrided traumatic wound, attention was then directed to the tibia fracture. An anterolateral approach just lateral to the anterior crest of the tibia was performed. Sharp dissection was carried down to the dermis. Caution was had for the superficial branch and peroneal nerves. Minimal skin flaps were developed to preserve the anterior medial soft tissue skin and tibial coverage. The anterior compartment fascia was opened to reveal the periosteum of the tibia. The anterior compartment was then retracted laterally to expose the anterolateral tibia. There is significant comminution and displacement of the fracture. Manual reduction was effected. Several fracture reduction clamps were used this stabilized and obtained an anatomic reduction of the short oblique spiral fracture. The butterfly fragment was posterior and proximal to the main fracture. There was good reduction through the spiral region, so an interfragmentary screw was planned. We placed one 3.5 mm interfragmentary screw with excellent compression and control. At this point we noticed the fibula was significantly unstable. There was prominence to the lateral malleoli or skin. At that point we recognized that there was a segmental fracture in the middle segment was displacing laterally. This was manually reduced in a closed manner provisionally. It was recognized that this will likely need stabilization because the segmental instability and skin compromise. Attention was then directed to the plating of the tibia. An anterolateral plate was selected using fluoroscopy to guide its placement and length. It did not sit in a perfect anatomic position for design. It was rotated slightly to capture the fracture and sit flat. This left a little prominence of the most proximal aspect of the plate but this was deep into the anterior compartment. Visually, the plate sat firmly against bone. The horizontal row of screws of the distal tibia fit nicely in the anatomy so that we could capture the posterior malleolus fragment. The placement of the plate was then selected and pinned under fluoroscopic guidance. The most medial portion of the horizontal row was bent to contour to the anterior distal tibia. The plate was clamped to the bone proximally. Plate fixation was begun. With use cortical screws on either side of the fracture to reduce the plate. Excellent purchase in the firm tibial bone was obtained. The plate was fixed proximally with sequential cortical screws to help reduce the plate down to bone and hold it fast. There was excellent purchase in each position. I felt no need for locking screws in that regard. The distal fragment was then secured. Cortical nonlocking screws were placed in the fracture. On the lateral view, we noticed the posterior malleolus fracture. The [id number] clamp was used to reduce this fluoroscopically. The posterior traumatic wound was available for clamp placement around the medial skin. We able to get an anatomic reduction by fluoroscopy in the lateral view of the posterior malleolus fragment. This was necessary to gain purchase at the distal row of the plate and subsequently capture that malleoli are fragment. It was about 10% the diameter on the sagittal plane. The distal row screws were then placed from anterior to posterior capturing the posterior malleolus fragment with nonlocking cortical screws. A third screw was placed in a locking format. An additional locking screw was placed along the bend of the plate. The fracture reduction, plate placement, and screw lengths were all checked on fluoroscopy in multiple planes. Appear to be adequately fix. Attention was then directed to the butterfly fragment. It was thoroughly rinsed with the iodine solution. With retraction of the anterior compartment we could see the defect on the lateral edge. The butterfly fragment did fit well up into the canal of the tibia. We attempted interfragmentary screw using a 2 oh drill, but the drill fracture. A portion of the drill remained well within the tibia did not appear to cause harm. It was determined to leave it because there would be excessive dissection to retrieve it. The butterfly fragment was then fixed using #2 Vicryl cerclage sutures. It was nonanatomic reduced but it appeared to serve some bone grafting purpose. We then directed attention to the displaced and unstable segmental fibula fracture. Standard lateral approach to the fibula was planned out. The incision was moved posterior to get at least 7 cm away from the anterolateral approach to the tibia. Direct incision was carried out sharply. Bovie electrocautery is used to the subcutaneous tissues. The fascia was visualized and the superficial peroneal nerve was protected. The fascia was opened to expose the fibula shaft. There was a significantly displaced and rotated segmental piece. This was reduced. There is a separate short oblique metaphyseal region fracture. This distal fracture was addressed first. We gained anatomic reduction using serial clamps and an interfragmentary 3.5 millimeter screw was used to stabilize this. This gave good purchase but I left a clamp because of bone quality. Attention was directed the more proximal fracture on the other side of the segment. This was a short oblique with some fragmentation. The fragmentation needed to be debrided. There were available short fracture keys. The clamp obtain reduction. The fracture attempted to flex but could manually reduce it while it interfragmentary screw was used to stabilize it. It obtained reasonable purchase. With a 2 fractures of the segmental pattern stabilized provisionally, a 10 hole one third tubular plate was positioned in size. It seemed to fit well when contour the long segment. The plate was then fixed to bone in the middle portion of the segment using c ortical screw. We then worked proximally to reduce the plate to bone using clamps and securing it with cortical screws. This was carried out in the distal malleolus fragment as well. The plate seem to lift off the bone but could be manually reduced and fixed using the locking screws in the lateral malleolus. Plate reduced well after slight contouring with a screwdriver. The proximal end of the plate was then finalized using locking screws in the proximal and 2 positions. Fluoroscopy was used to fixed wing pilot our segmental fracture fixation and plate placement. It was adequate. Syndesmotic stress maneuver was performed demonstrating intact deltoid and syndesmosis ligament complex. At this point the fractures were well stabilized and fixed firmly. Wound management was begun. The anterior lateral distal tibia approach was addressed first. It was approximated using 0 Vicryl suture to cover the plate with periosteum and fascia. 0 Jon was used the deep fascial layers to approximate the skin edge. 2-0 Vicryl was used in the dermis, followed by skin yuki with excellent approximation and no real tension. The fibula fracture wound had swollen somewhat. The peroneal muscle group I was significantly swollen. #2 nylon show all the sutures were then placed to put tension and reapproximate the wound edges. There was no undue tension and it did approximate with this technique. Attention was then directed the posterior medial traumatic wound. It was under significant tension. The debridement I left some soft tissue defect. I did not feel it was safe to try to approximate the skin edges due to the circular nature of soft tissue loss. The intervening anterior medial flap appeared to be tenuous. For that reason we opted for a wound VAC closure. We then direct attention back to the lateral malleoli wound. The skin had relaxed nicely. 2-0 Vicryl suture was used minimally in this dermal layer to approximate the wound. I then closed with vertical mattress 2-0 nylon sutures and remove the #2 sutures as we approximated and secured the wound. Complete closure was obtained with acceptable tension. We returned to the posterior medial wound. Again there appeared to be excessive tension in the anterior edge did not seem like it would except undue tension. For that reason, we opted to follow through with a wound VAC assisted closure. The small wound VAC was chosen. 2-0 nylon stitch was used in the very inferior portion of the wound. This did gain significant closure and reduce the size to approximately 6 x 3 cm. Wound VAC sponge was pressed onto it and then cut to fit. The wound VAC material was pushed down to the wound and sealed with the wound VAC dressing. Suction was applied. It was hooked to the wound VAC continuous suction machine. Seal check was good. The wounds were dressed with sterile Xeroform, gauze, ABD and contained by web roll. The limb was placed in a standard posterior slab ankle splint that was adequately padded. Patient was turned over anesthesia, extubated in the operating room without complication, and transported to the PACU in stable condition. Disposition: The patient will remain inpatient. The wound VAC will be applied for 48 to 72 hours well we will attempt to plan for wound care team involvement for serial VAC changes. The plan will be for vacuum-assisted closure to be continued until secondary healing is accomplished. The tibia fracture will warrant nonweightbearing for 6 weeks. We will plan to transition to a controlled active motion boot at day 3 with a wound VAC change. Antibiotics will be continued into the wound VAC is changed. He will continue to be followed as an outpatient in orthopedic clinic. He may need evaluation with PT and OT for inpatient rehab or penitentiary facility. I recommended daily aspirin for DVT prophylaxis. I attest to the content of the Intraoperative Record and any orders documented therein. Any exceptions are noted below.
[2024-08-03] MEDS ORDERED: HYDROmorphone INJ 0.5 MG/0.5 ML SYR IV PRN ×2 (23:19)
--- NOTE | 2024-08-03 23:46 | Anesthesiology Progress Note ---
Date of Service August 03, 2024 Anesthesia Post Procedure Vital Signs Vital Signs: Temp Pulse Pulse Resp BP Pulse Ox O2 Del Method 08/03/24 23:05 87 16 148/86 H 95 Room Air 08/03/24 22:55 36.4 C L 95 H 16 139/79 98 Oxymask 08/03/24 22:45 89 18 139/80 99 Oxymask 08/03/24 22:35 36.2 C L 90 18 143/88 H 98 Oxymask 08/03/24 22:15 36.3 C L 90 12 144/81 H 96 Room Air 08/03/24 15:44 36.4 C L 92 H 20 130/90 96 Room Air 08/03/24 13:50 36.8 C 75 16 116/76 96 Room Air 08/03/24 07:01 36.7 C 86 18 131/77 99 Room Air O2 Flow Rate 08/03/24 23:05 08/03/24 22:55 2 08/03/24 22:45 4 08/03/24 22:35 6 08/03/24 22:15 08/03/24 15:44 08/03/24 13:50 08/03/24 07:01 Transfer of Care Handoff Completed per policy Notes Mental Status: alert / awake / arousable and participated in evaluation Patient Amnestic to Procedure: Yes Nausea / Vomiting: adequately controlled Pain: adequately controlled Airway Patency, RR, SpO2: stable & adequate BP & HR: stable & adequate Hydration State: stable & adequate Anesthetic Complications: no major complications apparent
[2024-08-03] MEDS: ACETAMINOPHEN 500 MG TAB PO SCH (23:53)
--- NOTE | 2024-08-04 00:32 | XRay Report ---
Exam(s): XR RIGHT TIB/FIB, 2 views EXAM: XR Right Tibia and Fibula, 2 Views CLINICAL HISTORY: Reason for exam: postop in ICU. TECHNIQUE: Frontal and lateral views of the right tibia and fibula. COMPARISON: No relevant prior studies available. FINDINGS: Bones/joints: Status post open reduction and internal fixation with plates and screws spanning anatomically aligned fractures of the distal right tibia and fibula. Soft tissues: Skin yuki over the lower extremity consistent with recent surgery. No radiopaque foreign body. IMPRESSION: Status post open reduction and internal fixation with plates and screws spanning well aligned fractures of the distal right tibia and fibula. Electronically signed by: Attila Goss MD 08/04/24 00:31 AM
[2024-08-04] MEDS: KETOROLAC TROMETHAMINE 15 MG/ML VIAL IV PRN (03:10)
[2024-08-04 06:53] LABS: Basophils # (auto) 0.01 K/uL (0.00-0.20); Basophils % (auto) 0.1 %; Hematocrit (blood only) 40.3 % (42.0-52.0); Hemoglobin 13.6 g/dl (14.0-18.0); Immature Granulocytes # (auto) 0.05 K/uL (0.01-0.20); Immature Granulocytes % (auto) 0.4 %; Lymphocytes # (auto) 0.66 K/uL (1.20-3.40); Lymphocytes % (auto) 4.7 %; Mean Corpuscular Hemoglobin 29.1 pg (25.0-34.0); Mean Corpuscular Hgb Conc 33.7 g/dL (32.0-36.0); Mean Corpuscular Volume 86.3 fL (80.0-100.0); Mean Platelet Volume 9.5 fL (9.4-12.4); Monocytes # (auto) 1.82 K/uL (0.11-0.59); Monocytes % (auto) 12.9 %; Neutrophils # (auto) 11.58 K/uL (1.40-6.50); Neutrophils % (auto) 81.9 %; Platelet Count 220 K/uL (130-400); RDW Coefficient of Variation 12.6 % (11.5-14.5); RDW Standard Deviation 39.8 fL (36.4-46.3); Red Blood Count 4.67 M/uL (4.70-6.10); White Blood Count 14.12 K/ul (4.8-10.8)
[2024-08-04 07:38] LABS: BUN Creatinine Ratio 14.9 (10-20); Calcium 8.6 mg/dl (8.6-10.3); Creatinine Clr Calc Pharmacy 63.6 ml/min; Magnesium 1.9 mg/dl (1.7-2.4); Phosphorus 2.8 mg/dl (2.5-4.9); Potassium 4.5 mmol/L (3.5-5.1)
[2024-08-04] MEDS: OMEGA-3 (PURIFIED FISH OIL) 1 GM CAP PO SCH (08:04)
[2024-08-04] MEDS: ASPIRIN 325 MG ECTAB PO SCH (08:04)
--- NOTE | 2024-08-04 08:08 | Fluoroscopy Report ---
FL ankle RT min 3V RTN CLINICAL HISTORY: orif rt ankle COMPARISON STUDY: 08/02/2024 FLUOROSCOPY TIME: 19 seconds FLUOROSCOPY IMAGES: 10 EXPOSURE DOSE: 0.3 mGy FINDINGS: Fluoroscopy was provided for internal fixation of the right ankle. IMPRESSION: Intraoperative fluoroscopy. ACT 112: Negative or not required by law. Electronically signed by: Brayan Rico M.D. 08/04/2024 8:06 AM
--- NOTE | 2024-08-04 09:43 | Orthopedic Progress Note ---
Date of Service August 04, 2024 Assessment & Plan (1) Open fracture of right tibia and fibula: (2) Status post ORIF of fracture of ankle: Plan 63-year-old male POD# 1 s/p ORIF of right open ankle fracture by Dr. Coker on 08/03/2024. Plan: 1. DVT prophylaxis w/ ASA 325 mg daily. 2. PT/OT as tolerated. Non-WB on R LE x6 weeks. Crutches or knee scooter as needed to maintain WB precautions. 3. Pain well-controlled continue current regimen. 4. Wound VAC will be applied for 48 to 72 hours; will attempt to plan for wound care team involvement for serial VAC changes. The plan will be for vacuum- assisted closure to be continued until secondary healing is accomplished. Plan to transition to a controlled active motion boot at day 3 with a wound VAC change. 5. Continue ice/elevation. Keep splint/dressing clean and dry. 6. Antibiotics will be continued until the wound VAC is changed. 7. Disposition - pending PT/OT evaluations. Seemingly, family is preferring rehab vs. SNF, but also considering home health. 8. Follow-up outpatient with Dr. Coker's team 2-3 weeks postop. Subjective Patient is POD# 1 s/p right ankle ORIF by Dr. Coker on 08/03/2024. Patient says his pain is well-controlled this morning. Denies CP, SOB, N/V, R LE paresthesia. He and his brother, whom is the power of workers compensation attorney, will be talking with case management during their stay here as far as their intentions for discharge, which they are hoping for [facility] in [place], [place]. Review of Systems All systems reviewed & are unremarkable except as noted in HPI & below. Physical Exam GENERAL: AA&Ox3, NAD. Pleasant, affect is calm. Lying in bed and appears comfortable. RESPIRATORY: Normal respiratory effort with no signs of distress. CHEST/AXILLA: Chest movement symmetrical. No deformities noted. CARDIOVASCULAR: No edema noted. SKIN: [place], warm and dry. MS/EXTREMITY: Right ankle dressing, DANIS wrap, and posterior short leg splint c/d/i. + Wiggles toes. NVI distally. Capillary refill <2 seconds. Upper calf soft/NT. DP pulse intact. Results & Data Results & Data Laboratory Results . Laboratory Results - last 24 hr 08/04/24 06:30 WBC 14.12 H RBC 4.67 L Hgb 13.6 L Hct 40.3 L MCV 86.3 MCH 29.1 MCHC 33.7 RDW Std Deviation 39.8 RDW Coeff of Karol 12.6 Plt Count 220 MPV 9.5 Immature Gran % (Auto) 0.4 Neut % (Auto) 81.9 Lymph % (Auto) 4.7 Porter % (Auto) 12.9 Eos % (Auto) 0.0 Baso % (Auto) 0.1 Neut # (Auto) 11.58 H Lymph # (Auto) 0.66 L Porter # (Auto) 1.82 H Eos # (Auto) 0.00 Baso # (Auto) 0.01 Immature Gran # (Auto) 0.05 Sodium 135 L Potassium 4.5 Chloride 102 Carbon Dioxide 28 Anion Gap 5 BUN 17 Creatinine 1.14 Est Cr Clr Drug Dosing 63.6 eGFR 73.17 BUN/Creatinine Ratio 14.9 Glucose 141 H Calcium 8.6 Phosphorus 2.8 Magnesium 1.9 Diagnostic Findings . Ankle X-Ray 08/03/24 00:00 FL ankle RT min 3V RTN CLINICAL HISTORY: orif rt ankle COMPARISON STUDY: 08/02/2024 FLUOROSCOPY TIME: 19 seconds FLUOROSCOPY IMAGES: 10 EXPOSURE DOSE: 0.3 mGy FINDINGS: Fluoroscopy was provided for internal fixation of the right ankle. IMPRESSION: Intraoperative fluoroscopy. ACT 112: Negative or not required by law. Electronically signed by: Brayan Rico M.D. 08/04/2024 8:06 AM Tibia/Fibula X-Ray 08/03/24 22:53 Exam(s): XR RIGHT TIB/FIB, 2 views EXAM: XR Right Tibia and Fibula, 2 Views CLINICAL HISTORY: Reason for exam: postop in ICU. TECHNIQUE: Frontal and lateral views of the right tibia and fibula. COMPARISON: No relevant prior studies available. FINDINGS: Bones/joints: Status post open reduction and internal fixation with plates and screws spanning anatomically aligned fractures of the distal right tibia and fibula. Soft tissues: Skin yuki over the lower extremity consistent with recent surgery. No radiopaque foreign body. IMPRESSION: Status post open reduction and internal fixation with plates and screws spanning well aligned fractures of the distal right tibia and fibula. Electronically signed by: Attila Goss MD 08/04/24 00:31 AM PG Care Time/CCT Total # of Minutes Spent Total Time Spent with Patient: Total time spent is greater than 50% in coordination of care (as documented) at patient's floor/unit and/or counseling patient: Coding [place] [address] Post Operative Follow-Up Patient Type Established History Problem Focused Exam Problem Focused Medical Decision Making Straight Forward Diagnoses Open fracture of right tibia and fibula S82.201B; S82.401B Status post ORIF of fracture of ankle Z98.890; Z87.81
--- NOTE | 2024-08-04 10:12 | Hospitalist Progress Note ---
Date of Service August 04, 2024 Assessment & Plan (1) Open fracture of right tibia and fibula: Plan: per previous hospitalist notes with addendum: Traumatic right open tibial fibula fracture secondary to fall Orthopedics consulted Pt s/p p Right Open Tibia and Fibula Irrigation and Debridement and Open Reduction Internal Fixation, right fibula fracture open reduction internal fixation, application of vacuum-assisted closure device to traumatic wound (Right) - Hilario Coker MD (08/03/2024) Per ortho - The patient will remain inpatient. The wound VAC will be applied for 48 to 72 hours well we will attempt to plan for wound care team involvement for serial VAC changes. The plan will be for vacuum-assisted closure to be continued until secondary healing is accomplished. The tibia fracture will warrant nonweightbearing for 6 weeks. We will plan to transition to a controlled active motion boot at day 3 with a wound VAC change. Antibiotics will be continued into the wound VAC is changed. He will continue to be followed as an outpatient in orthopedic clinic. He may need evaluation with PT and OT for inpatient rehab or senior living facility. I recommended daily a spirin for DVT prophylaxis. (ASA 325 mg daily ordered by Dr. Coker) - monitor blood pressure, labs tomorrow - dvt ppx per ortho - PT OT evaluation per ortho Chronic conditions: Hypertension, stable Hyperlipidemia statin Rx history of childhood seizures, stable off maintenance medications Prediabetes, hemoglobin A1c of 5.7 from last year as per records PSA elevation, patient follows with [facility] Intellectual impairment DVT prophylaxis. ASA 325 daily as per ortho Full code Admission and Anticipated Discharge Date Admission Date: August 02, 2024 Subjective S/p follow-up for right tib-fib fracture, s/p surgical repair on 08/03 (yesterday) Seen resting in bed, comfortable, not in distress No chest pain, shortness of breath, palpitations, dizziness, nausea, no abd. pain No other new symptoms Review of Systems Review of Systems: All systems reviewed & are unremarkable except as noted in Subjective Physical Exam Physical Exam: General- oriented x 3, not in distress, speaks in sentences with no effort or accessory muscle use Eyes- anicteric Neck- no JVD Lungs- clear breath sounds bilaterally, no rales/wheezes Heart- normal rate, regular rhythm; no murmurs Abdomen- normal bowel sounds, nondistended, soft, nontender Extremities- no pretibial edema, no calf tenderness Right lower extremity: dressings, steve wraps applied, posterior leg splint Neuro- alert, oriented x 3; no gross focal neurologic deficits Skin- warm & dry Results & Data Results & Data Vital Signs (Past 12 Hours) Vital Signs Temp Pulse Pulse Resp BP BP Pulse Ox 08/04/24 07:35 36.4 C L 91 H 12 132/90 97 08/04/24 07:16 08/04/24 06:15 36.4 C L 77 18 127/75 100 08/04/24 02:15 36.4 C L 103 H 18 147/82 H 91 08/04/24 01:15 36.5 C 95 H 18 154/81 H 97 08/04/24 00:15 36.5 C 90 18 149/84 H 95 08/03/24 23:45 36.4 C L 89 14 142/79 H 96 08/03/24 23:05 87 16 148/86 H 95 08/03/24 22:55 36.4 C L 95 H 16 139/79 98 08/03/24 22:45 89 18 139/80 99 08/03/24 22:35 36.2 C L 90 18 143/88 H 98 08/03/24 22:15 36.3 C L 90 12 144/81 H 96 O2 Del Method O2 Flow Rate 08/04/24 07:35 Room Air 08/04/24 07:16 Room Air 08/04/24 06:15 Nasal Cannula 2 08/04/24 02:15 Room Air 08/04/24 01:15 Room Air 08/04/24 00:15 Room Air 08/03/24 23:45 Room Air 08/03/24 23:05 Room Air 08/03/24 22:55 Oxymask 2 08/03/24 22:45 Oxymask 4 08/03/24 22:35 Oxymask 6 08/03/24 22:15 Room Air Laboratory Results 08/04/24 Range/Units 06:30 WBC 14.12 H (4.8-10.8) K/ul RBC 4.67 L (4.70-6.10) M/uL Hgb 13.6 L (14.0-18.0) g/dl Hct 40.3 L (42.0-52.0) % MCV 86.3 (80.0-100.0) fL MCH 29.1 (25.0-34.0) pg MCHC 33.7 (32.0-36.0) g/dL RDW Std Deviation 39.8 (36.4-46.3) fL RDW Coeff of Karol 12.6 (11.5-14.5) % Plt Count 220 (130-400) K/uL MPV 9.5 (9.4-12.4) fL Immature Gran % (Auto) 0.4 % Neut % (Auto) 81.9 % Lymph % (Auto) 4.7 % [place] % (Auto) 12.9 % Eos % (Auto) 0.0 % Baso % (Auto) 0.1 % Neut # (Auto) 11.58 H (1.40-6.50) K/uL Lymph # (Auto) 0.66 L (1.20-3.40) K/uL [place] # (Auto) 1.82 H (0.11-0.59) K/uL Eos # (Auto) 0.00 (0.00-0.50) K/uL Baso # (Auto) 0.01 (0.00-0.20) K/uL Immature Gran # (Auto) 0.05 (0.01-0.20) K/uL Sodium 135 L (136-145) mmol/L Potassium 4.5 (3.5-5.1) mmol/L Chloride 102 (98-107) mmol/L Carbon Dioxide 28 (21-32) mmol/L Anion Gap 5 (3-11) BUN 17 (6-23) mg/dl Creatinine 1.14 (0.6-1.4) mg/dl Est Cr Clr Drug Dosing 63.6 ml/min eGFR 73.17 BUN/Creatinine Ratio 14.9 (10-20) Glucose 141 H (70-99(Fasting)) mg/dl Calcium 8.6 (8.6-10.3) mg/dl Phosphorus 2.8 (2.5-4.9) mg/dl Magnesium 1.9 (1.7-2.4) mg/dl Medications Administered Current Inpatient Medications Acetaminophen (Acetaminophen 500 Mg Tab) 1,000 mg PO Q8H [facility] Stop: 09/03/24 00:00 Last Admin: 08/04/24 07:17 Dose: 1,000 mg Aspirin (Aspirin 325 Mg Ectab) 325 mg PO QAM [facility] Stop: 09/03/24 08:59 Last Admin: 08/04/24 08:04 Dose: 325 mg Fish Oil ([place]-3 (Purified Fish Oil) 1 Gm Cap) 1 cap PO DAILY [facility] Stop: 09/03/24 08:59 Last Admin: 08/04/24 08:04 Dose: 1 cap Hydromorphone HCl (Hydromorphone Inj 0.5 Mg/0.5 Ml Syr) 0.25 mg IV Q3H PRN PRN Reason: Pain (1,2,3,4,5) & Pre PT Stop: 08/17/24 23:18 Hydromorphone HCl (Hydromorphone Inj 0.5 Mg/0.5 Ml Syr) 0.5 mg IV Q3H PRN PRN Reason: Pain (6,7,8,9,10) Stop: 08/17/24 23:18 Cefazolin Sodium (Ancef 2000mg) 2,000 mg in 15 mls @ 3.75 mls/min IV Q8H [facility] Stop: 09/13/24 20:59 Last Admin: 08/04/24 05:17 Dose: 3.75 mls/min Promethazine HCl (Phenergan) 6.25 mg in 50.25 mls @ 201 mls/hr IV Q6H PRN PRN Reason: Nausea And Vomiting Stop: 09/01/24 20:23 Ketorolac Tromethamine (Ketorolac Tromethamine 15 Mg/Ml Vial) 15 mg IV Q6H PRN PRN Reason: Pain & Pre PT Stop: 08/08/24 23:18 Last Admin: 08/04/24 03:10 Dose: 15 mg Lisinopril (Lisinopril 5 Mg Tab) 5 mg PO DAILY [facility] Stop: 09/02/24 08:59 Last Admin: 08/04/24 08:04 Dose: 5 mg Lorazepam (Lorazepam 0.5 Mg Tab) 0.5 mg PO TID PRN PRN Reason: Anxiety Stop: 09/01/24 20:23 Last Admin: 08/02/24 22:18 Dose: 0.5 mg Oxycodone HCl (Oxycodone Hcl Ir 5 Mg Tab (Immediate Release)) 5 mg PO Q4H PRN PRN Reason: Pain Stop: 08/16/24 20:23 Last Admin: 08/03/24 04:44 Dose: 5 mg Rosuvastatin Calcium (Rosuvastatin Calcium 20 Mg Tab) 20 mg PO HS [facility] Stop: 09/01/24 20:59 Last Admin: 08/03/24 23:53 Dose: 20 mg
--- NOTE | 2024-08-05 08:44 | Orthopedic Progress Note ---
Date of Service August 05, 2024 Assessment & Plan (1) Status post ORIF of fracture of ankle: 63-year-old male POD# 2 s/p ORIF of right open ankle fracture by Dr. Coker on 08/03/2024. Plan: 1. DVT prophylaxis w/ ASA 325 mg daily. 2. PT/OT as tolerated. Non-WB on R LE x6 weeks. Crutches or knee scooter as needed to maintain WB precautions. 3. Pain well-controlled continue current regimen. 4. Wound VAC will be applied for 48 to 72 hours; will attempt to plan for wound care team involvement for serial VAC changes. The plan will be for vacuum- assisted closure to be continued until secondary healing is accomplished. Plan to transition to a controlled active motion boot at day 3 with a wound VAC change. 5. Continue ice/elevation. Keep splint/dressing clean and dry. I added some more pillows today as his toes are beginning to swell. 6. Antibiotics will be continued until the wound VAC is changed. 7. Disposition - pending PT/OT evaluations. Likely rehab facility. 8. Follow-up outpatient with Dr. Coker's team 2-3 weeks postop. Subjective Operation Date: 08/03/24 09:25 Actual Procedures p Right Open Tibia and Fibula Irrigation and Debridement and Open Reduction Internal Fixation, right fibula fracture open reduction internal fixation, application of vacuum-assisted closure device to traumatic wound (Right) - MD Mitchell Saleh os POD 2 from a right open tibia and fibula I and D and ORIF with wound vac application. He is resting comfortably in his hospital bed today. He does have his surgical leg on some pillows but he is having some increased edema in his toes. Other than that, he is doing well. Wound VAC is in place. Review of Systems All systems reviewed & are unremarkable except as noted in HPI & below. Physical Exam General: Alert. No acute distress. Right lower extremity: He does have some increased edema in his toes. He does have good range of motion of his toes, sensation and capillary refill. No significant pain for the patient. The Tao wrap/splint is dry and intact. Wound VAC is functioning well. I did elevate his foot a little more Results & Data Results & Data Laboratory Results . Diagnostic Findings . PG Care Time/CCT Total # of Minutes Spent Total Time Spent with Patient: Total time spent is greater than 50% in coordination of care (as documented) at patient's floor/unit and/or counseling patient: Coding Level of Care Code 34996 Post Operative Follow-Up Diagnoses Status post ORIF of fracture of ankle Z98.890; Z87.81
[2024-08-05 08:58] LABS: Hematocrit (blood only) 39.3 % (42.0-52.0); Hemoglobin 13.3 g/dl (14.0-18.0); Mean Corpuscular Hemoglobin 29.2 pg (25.0-34.0); Mean Corpuscular Hgb Conc 33.8 g/dL (32.0-36.0); Mean Corpuscular Volume 86.2 fL (80.0-100.0); Mean Platelet Volume 9.6 fL (9.4-12.4); Platelet Count 216 K/uL (130-400); RDW Coefficient of Variation 12.9 % (11.5-14.5); RDW Standard Deviation 40.8 fL (36.4-46.3); Red Blood Count 4.56 M/uL (4.70-6.10); White Blood Count 14.09 K/ul (4.8-10.8)
--- NOTE | 2024-08-05 08:59 | Hospitalist Progress Note ---
Date of Service August 05, 2024 Assessment & Plan (1) Open fracture of right tibia and fibula: Plan: per previous hospitalist notes with addendum: Traumatic right open tibial fibula fracture secondary to fall Orthopedics consulted Pt s/p p Right Open Tibia and Fibula Irrigation and Debridement and Open Reduction Internal Fixation, right fibula fracture open reduction internal fixation, application of vacuum-assisted closure device to traumatic wound (Right) - Hilario Coker MD (08/03/2024) Per ortho - The patient will remain inpatient. The wound VAC will be applied for 48 to 72 hours well we will attempt to plan for wound care team involvement for serial VAC changes. The plan will be for vacuum-assisted closure to be continued until secondary healing is accomplished. The tibia fracture will warrant nonweightbearing for 6 weeks. We will plan to transition to a controlled active motion boot at day 3 with a wound VAC change. Antibiotics will be continued into the wound VAC is changed. He will continue to be followed as an outpatient in orthopedic clinic. He may need evaluation with PT and OT for inpatient rehab or long term facility. I recommended daily aspirin for DVT prophylaxis. (ASA 325 mg daily ordered by Dr. Coker) - monitor blood pressure, labs tomorrow - dvt ppx per ortho - PT OT evaluation per ortho Chronic conditions: Hypertension, stable Hyperlipidemia statin Rx history of childhood seizures, stable off maintenance medications Prediabetes, hemoglobin A1c of 5.7 from last year as per records PSA elevation, patient follows with [facility] Intellectual impairment DVT prophylaxis. ASA 325 daily as per ortho Full code Admission and Anticipated Discharge Date Admission Date: August 02, 2024 Subjective S/p follow-up for right tib-fib fracture, s/p surgical repair on 08/03 Seen resting in bed, comfortable, not in distress No chest pain, shortness of breath, palpitations, dizziness, nausea, no abd. pain No other new symptoms Family present at the bedside and discussed with. Review of Systems Review of Systems: All systems reviewed & are unremarkable except as noted in Subjective Physical Exam Physical Exam: General- oriented x 3, not in distress, speaks in sentences with no effort or accessory muscle use Eyes- anicteric Neck- no JVD Lungs- clear breath sounds bilaterally, no rales/wheezes Heart- normal rate, regular rhythm; no murmurs Abdomen- normal bowel sounds, nondistended, soft, nontender Extremities- no pretibial edema, no calf tenderness Right lower extremity: dressings, steve wraps applied, posterior leg splint, moves toes Neuro- alert, oriented x 3; no gross focal neurologic deficits Skin- warm & dry Results & Data Results & Data Vital Signs (Past 12 Hours) Vital Signs Temp Pulse Resp BP Pulse Ox O2 Del Method 08/05/24 07:15 36.6 C 77 18 125/78 99 Room Air Laboratory Results 08/05/24 Range/Units 08:25 WBC 14.09 H (4.8-10.8) K/ul RBC 4.56 L (4.70-6.10) M/uL Hgb 13.3 L (14.0-18.0) g/dl Hct 39.3 L (42.0-52.0) % MCV 86.2 (80.0-100.0) fL MCH 29.2 (25.0-34.0) pg MCHC 33.8 (32.0-36.0) g/dL RDW Std Deviation 40.8 (36.4-46.3) fL RDW Coeff of Karol 12.9 (11.5-14.5) % Plt Count 216 (130-400) K/uL MPV 9.6 (9.4-12.4) fL Sodium 137 (136-145) mmol/L Potassium 3.9 (3.5-5.1) mmol/L Chloride 103 (98-107) mmol/L Carbon Dioxide 29 (21-32) mmol/L Anion Gap 5 (3-11) BUN 23 (6-23) mg/dl Creatinine 1.02 (0.6-1.4) mg/dl Est Cr Clr Drug Dosing 71.1 ml/min eGFR 83.62 BUN/Creatinine Ratio 22.5 H (10-20) Glucose 122 H (70-99(Fasting)) mg/dl Calcium 8.2 L (8.6-10.3) mg/dl Phosphorus 2.7 (2.5-4.9) mg/dl Magnesium 2.0 (1.7-2.4) mg/dl Medications Administered Current Inpatient Medications Acetaminophen (Acetaminophen 500 Mg Tab) 1,000 mg PO Q8H [facility] Stop: 09/03/24 00:00 Last Admin: 08/05/24 08:14 Dose: 1,000 mg Aspirin (Aspirin 325 Mg Ectab) 325 mg PO QAM [facility] Stop: 09/03/24 08:59 Last Admin: 08/04/24 08:04 Dose: 325 mg Fish Oil ([place]-3 (Purified Fish Oil) 1 Gm Cap) 1 cap PO DAILY [facility] Stop: 09/03/24 08:59 Last Admin: 08/05/24 08:15 Dose: 1 cap Hydromorphone HCl (Hydromorphone Inj 0.5 Mg/0.5 Ml Syr) 0.25 mg IV Q3H PRN PRN Reason: Pain (1,2,3,4,5) & Pre PT Stop: 08/17/24 23:18 Hydromorphone HCl (Hydromorphone Inj 0.5 Mg/0.5 Ml Syr) 0.5 mg IV Q3H PRN PRN Reason: Pain (6,7,8,9,10) Stop: 08/17/24 23:18 Cefazolin Sodium (Ancef 2000mg) 2,000 mg in 15 mls @ 3.75 mls/min IV Q8H [facility] Stop: 09/13/24 20:59 Last Admin: 08/05/24 05:05 Dose: 3.75 mls/min Promethazine HCl (Phenergan) 6.25 mg in 50.25 mls @ 201 mls/hr IV Q6H PRN PRN Reason: Nausea And Vomiting Stop: 09/01/24 20:23 Ketorolac Tromethamine (Ketorolac Tromethamine 15 Mg/Ml Vial) 15 mg IV Q6H PRN PRN Reason: Pain & Pre PT Stop: 08/08/24 23:18 Last Admin: 08/04/24 19:55 Dose: 15 mg Lisinopril (Lisinopril 5 Mg Tab) 5 mg PO DAILY [facility] Stop: 09/02/24 08:59 Last Admin: 08/05/24 08:15 Dose: 5 mg Lorazepam (Lorazepam 0.5 Mg Tab) 0.5 mg PO TID PRN PRN Reason: Anxiety Stop: 09/01/24 20:23 Last Admin: 08/02/24 22:18 Dose: 0.5 mg Oxycodone HCl (Oxycodone Hcl Ir 5 Mg Tab (Immediate Release)) 5 mg PO Q4H PRN PRN Reason: Pain Stop: 08/16/24 20:23 Last Admin: 08/05/24 02:56 Dose: 5 mg Rosuvastatin Calcium (Rosuvastatin Calcium 20 Mg Tab) 20 mg PO HS [facility] Stop: 09/01/24 20:59 Last Admin: 08/04/24 20:13 Dose: 20 mg
[2024-08-05 09:17] LABS: BUN Creatinine Ratio 22.5 (10-20); Calcium 8.2 mg/dl (8.6-10.3); Creatinine Clr Calc Pharmacy 71.1 ml/min; Phosphorus 2.7 mg/dl (2.5-4.9); Potassium 3.9 mmol/L (3.5-5.1)
[2024-08-06 07:24] LABS: Hematocrit (blood only) 36.1 % (42.0-52.0); Hemoglobin 12.2 g/dl (14.0-18.0); Mean Corpuscular Hemoglobin 29.2 pg (25.0-34.0); Mean Corpuscular Hgb Conc 33.8 g/dL (32.0-36.0); Mean Corpuscular Volume 86.4 fL (80.0-100.0); Mean Platelet Volume 9.5 fL (9.4-12.4); Platelet Count 246 K/uL (130-400); RDW Coefficient of Variation 12.9 % (11.5-14.5); RDW Standard Deviation 40.7 fL (36.4-46.3); Red Blood Count 4.18 M/uL (4.70-6.10); White Blood Count 12.64 K/ul (4.8-10.8)
[2024-08-06 07:43] LABS: BUN Creatinine Ratio 23.9 (10-20); Calcium 8.5 mg/dl (8.6-10.3); Creatinine Clr Calc Pharmacy 66.5 ml/min; Magnesium 2.1 mg/dl (1.7-2.4); Phosphorus 3.5 mg/dl (2.5-4.9); Potassium 4.4 mmol/L (3.5-5.1)
[2024-08-06 08:15] VITALS: RESP 18
--- NOTE | 2024-08-06 08:19 | Orthopedic Progress Note ---
Date of Service August 06, 2024 Assessment & Plan (1) Status post ORIF of fracture of ankle: Continue aspirin for dvt prophylaxis. Continue IV antibiotics until wound vac dressing change. Should see wound care team for dressing change today. Pain controlled. NWB RLE x 6 weeks Wound VAC will be applied for 48 to 72 hours; will attempt to plan for wound care team involvement for serial VAC changes. The plan will be for vacuum- assisted closure to be continued until secondary healing is accomplished. Plan to transition to a controlled active motion boot at day 3 with a wound VAC change. Subjective . 63 year old patient POD 3 from I and D, ORIF, and wound vac placement for an open tib/fib fx. Pain controlled. Not really having any pain now. No new complaints. Review of Systems All systems reviewed & are unremarkable except as noted in HPI & below. Physical Exam . alert, NAD. VSS Splint/dressing clean,dry,intact. Able to move toes appropriately. NVI. Results & Data Results & Data Laboratory Results . Diagnostic Findings . PG Care Time/CCT Total # of Minutes Spent Total Time Spent with Patient: Total time spent is greater than 50% in coordination of care (as documented) at patient's floor/unit and/or counseling patient: Coding Level of Care Code 87878 Post Operative Follow-Up Diagnoses Status post ORIF of fracture of ankle Z98.890; Z87.81
--- NOTE | 2024-08-06 14:16 | Discharge Summary ---
Date of Service August 06, 2024 Admission HPI Per Admitting Provider History obtained from patient, family, and records. Medical history significant for hypertension, hyperlipidemia, prediabetes, PSA elevation as per records, history of childhood seizures, intellectual impairment. Patient slipped down steps outside his home today. Patient twisted right ankle resulting in bleeding wound following fall. No head trauma, LOC, chest pain, SOB. Patient able to crawl back into his house and call family. Patient brought to ER by EMS. Closed reduction of right ankle fracture done under sedation. Medical History as above Surgical History : Tonsillectomy Family History : Heart disease, DM Personal/Social history : Non-smoker, no EtOH intake, retired store employee Baseline Functionality : able to do housework at home without rest/exertional chest pain, S OB prior to injury Admission Exam Per Admitting Provider GENERAL: Comfortable, pleasant, no respiratory distress SKIN: Normal color, warm HEENT: Ballou palpebral conjunctivae, no ptosis, moist buccal mucosa NECK : Supple, no tenderness CHEST : CTA, no tenderness HEART : RRR, no obvious murmurs ABDOMEN: Some distention, nontender EXTREMITIES : RLE immobilizer in place, palpable pulses, no other conspicuous deformities noted NEUROLOGIC : Coherent, no facial asymmetry, no other gross focality Principal Diagnosis Fall, ankle fracture, s/p ORIF of fracture of ankle Discharge Exam General- oriented x 3, not in distress, speaks in sentences with no effort or accessory muscle use Eyes- anicteric Neck- no JVD Lungs- clear breath sounds bilaterally, no rales/wheezes Heart- normal rate, regular rhythm; no murmurs Abdomen- normal bowel sounds, nondistended, soft, nontender Extremities- no pretibial edema, no calf tenderness Right lower extremity: dressings, steve wraps applied, posterior leg splint, moves toes Neuro- alert, oriented x 3; no gross focal neurologic deficits Skin- warm & dry Discharge Data Allergies Allergy/AdvReac Type Severity Reaction Status Date / Time No Known Allergies Allergy Verified 08/02/24 18:55 Consultations 08/02/24 19:23 ED Decision to Admit Stat 08/02/24 19:24 Consult Orthopedic Surgery Stat Procedures Performed Operation Date: 08/03/24 09:25 Actual Procedures p and Open Reduction Internal Fixation(Right) - Hilario Coker MD s Right Open Tibia and Fibula Irrigation and Debridement(Right) - Hilario Coker MD Ordered Studies 08/03/24 FL ankle RT min 3V RTN Routine FINDINGS: Bones/joints: Status post open reduction and internal fixation with plates and screws spanning anatomically aligned fractures of the distal right tibia and fibula. Soft tissues: Skin yuki over the lower extremity consistent with recent surgery. No radiopaque foreign body. IMPRESSION: Status post open reduction and internal fixation with plates and screws spanning well aligned fractures of the distal right tibia and fibula. Hospital Course (1) Open fracture of right tibia and fibula: Traumatic right open tibial fibula fracture secondary to fall Orthopedics consulted Pt s/p p Right Open Tibia and Fibula Irrigation and Debridement and Open Reduction Internal Fixation, right fibula fracture open reduction internal f ixation, application of vacuum-assisted closure device to traumatic wound (Right) - Hilario Coker MD (08/03/2024) Per orthopedics - The patient will remain inpatient. The wound VAC will be applied for 48 to 72 hours well we will attempt to plan for wound care team involvement for serial VAC changes. The plan will be for vacuum-assisted closure to be continued until secondary healing is accomplished. The tibia fracture will warrant nonweightbearing for 6 weeks. We will plan to transition to a controlled active motion boot at day 3 with a wound VAC change. Antibiotics will be continued into the wound VAC is changed. He will continue to be followed as an outpatient in orthopedic clinic. I recommended daily aspirin for DVT prophylaxis. (ASA 325 mg daily ordered by Dr. Coker) PT/OT as tolerated. Non-WB on R LE x6 weeks. Crutches or knee scooter as needed to maintain WB precautions. Follow-up outpatient with Dr. Coker's team 2-3 weeks postop - monitor blood pressure - dvt ppx per ortho, as above - PT OT evaluation per ortho, as above Chronic conditions: Hypertension, stable Hyperlipidemia statin Rx history of childhood seizures, stable off maintenance medications Prediabetes, hemoglobin A1c of 5.7 from last year as per records PSA elevation, patient follows with [facility] Intellectual impairment DVT prophylaxis. ASA 325 daily as per ortho Total Time Total Time Spent Total Time Spent (In Minutes): 40 Discharge Plan Discharge Items Patient Disposition: Transfer Acute Care Hospital Reason For Visit: FALL, ANKLE FRACTURE Discharge Diagnosis: Fall, ankle fracture, s/p ORIF of fracture of ankle Activity: Per Instructions section Non-emergency contact: Primary Care Provider, Surgeon and Specialist Call non-emergency contact if: you have any medication questions and your symptoms worsen Follow-up/Referrals: Caleb Alegre CRNP [Primary Care Provider] - Diet: Heart Healthy James Attending Provider Instructions: Follow up with your primary care doctor and orthopedic surgeon. Read instruction from your surgeon in detail below. James Seasonal Recruiter Provider Instructions: Hilario Coker M.D. [facility] [address] [place] [address] POSTOPERATIVE INSTRUCTIONS ANKLE FRACTURES BOOT: Please wear the boot at all times except for hygiene and dressing. We switched you to a boot from your splint for wound care. Do not remove the wound vac yourself. Wound Care will do this for you. PAIN CONTROL: Elevation is your best friend. Elevate the affected extremity above the level of your heart. Swelling is simply fluid. Elevation will allow the fluid to run down hill, reduce swelling, and decrease pain. The affected extremity should be continuously elevated for the first 2-3 days, with the exception of bathroom, hygiene, etc. You may be prone to swelling for several weeks, or until you return to normal function with your foot/ankle. Ice will help with pain and swelling. Place ice over the front of your ankle. There is abundant padding so it may take a while to feel like its working. Be sure to not let the ice leak into your splint. Medications: 1. You will be sent home on a narcotic pain medication. Please use this as needed and wean from it when able. 2. Tylenol (325mg): 3 tablets every 8 hours orally. Regular dosing of Tylenol is an important part of your baseline pain control. Do not taper Tylenol until you have successfully tapered off of regular OxyIR. Do not take more than 3000mg of Tylenol per day. 3. Colace (100mg): take 1-2 tabs twice daily to avoid constipation from OxyIR or other narcotics. OVER THE COUNTER 4. Aspirin (325mg): Blood clots can be caused by fracture and immobility. Ankle fractures have a low risk of blood clots, but one aspirin tablet per day starting the day after surgery may reduce whatever minimal risk there is even further. The risk of clots goes down significantly after 30 days or as you return to normal mobility. WHEN TO CALL. If you develop any of the following symptoms, please contact the [facility] at [phone] or the Emergency room (after hours): Temperature greater than 101 taken twice, difficulty breathing, bleeding, fever and chills, increased pain unrelieved by pain meds, uncomfortable cast or splint, or any other concerns. Pending Studies at Discharge: No Stand-Alone Forms: [facility] Skilled Items Patient informed of condition?: Yes DNR: No Discharge Level of Care: Acute rehab Communicable Disease: No Discharge Prognosis: Stable Lines: None Urinary Catheter: Yes Medications and DC Order Prescriptions: New aspirin [Ecotrin] 325 mg Tablet,Delayed Release (Dr/Ec) 325 mg PO QAM Qty: 30 0RF acetaminophen [Tylenol Extra Strength] 500 mg Tablet 1,000 mg PO Q8H Qty: 14 0RF oxycodone 5 mg Tablet 5 mg PO Q4H PRN (Reason: pain) Qty: 14 0RF Continued lisinopril 5 mg tablet 5 mg PO DAILY rosuvastatin 20 mg tablet 20 mg PO HS omega [id number] oil [Fish Oil] 1,000 (120-180) mg Capsule 1 cap PO DAILY Discharge Orders: Discharge Order (Routine); Ordered 08/06/24 Ordered By: Hoang Weiss Admission Data Admit Date/Time: 08/02/24 20:23 Attending Provider: Hoang Weiss Admit Provider: Hermilo Anne Primary Care Provider: Caleb Alegre Other Providers: Sukhdev Fuentes; Hermilo Anne; Hilario Coker; [facility]
[2024-08-06 15:01] VITALS: PULSE 80; TEMP 98.1; O2SAT 96
[2024-08-06 15:13] VITALS: BP 122/75
== END 2024-08-06 16:51 | DRG 494 ==
LOC: ED 17:26 → SUATTDRO 20:23 → 3N 20:23
DX: Y92.009 Unspecified place in unspecified non-institutional (private) residence as the place of occurrence of the external cause; W10.8XXA Fall (on) (from) other stairs and steps, initial encounter; I10 Essential (primary) hypertension; S82.201B Unspecified fracture of shaft of right tibia, initial encounter for open fracture type I or II; E78.5 Hyperlipidemia, unspecified; R73.03 Prediabetes; S82.401A Unspecified fracture of shaft of right fibula, initial encounter for closed fracture

== ENCOUNTER 2024-12-09 10:40 | Inpatient (IN) ==
--- NOTE | 2024-12-08 11:33 | Anesthesiology Consultation ---
Date of Service December 08, 2024 Assessment & Plan (1) Encounter for pre-operative examination: Chart Review Chart Review: Acceptable Risk for Surgery and Patient NOT seen in Pre Admission Testing Intellectual disability- patient's brother and sister in law will be present day of surgery -Infectious Disease screening: Per PAT nursing assessment on 12/08/24. No known infectious disease contacts in past 10 days or current infectious disease symptoms. No recent travel outside the country. ORIF Right Tibia and Fibula 08/03/24= Done under GA with Grade 2 view with Boo #2. ETT #7.5. Consults Requested medical & cardiac Pulmonary ASA ASA2 Proposed Anesthesia Anesthesia Type: General Regional Regional Laterality: Right Site: Popliteal and Adductor Canal Risk / Benefits Reviewed With: PT / POA / Parent / Guardian, Accepts Plan and Informed Consent Obtained History Surgery Operation Date: 12/09/24 12:25 Proposed Procedures p Right Distal Tibia and Fibula Hardware Removal, Irrigation and Debridement - Hilario Coker MD s Possible External Fixation - Hilario Coker MD Height/Weight Height: 5 ft 6.5 in Weight: 76.204 kg Allergies Allergy/AdvReac Type Severity Reaction Status Date / Time No Known Allergies Allergy Verified 12/09/24 10:54 Medications Home Medications Medication Instructions Recorded Confirmed Last Taken lisinopril 5 mg tablet 5 mg PO QAM 01/30/24 12/09/24 12/08/24 09:00 rosuvastatin 20 mg tablet 20 mg PO HS 08/02/24 12/09/24 12/08/24 21:00 acetaminophen 500 mg tablet 1,000 mg (2 x 500 mg) PO Q8H #14 08/06/24 12/09/24 12/09/24 11:12 (Tylenol Extra Strength) tabs aspirin 325 mg tablet,delayed 325 mg PO QAM #30 tabs 08/06/24 12/09/24 12/08/24 09:00 release (Ecotrin) tamsulosin 0.4 mg capsule 0.4 mg PO HS #30 caps 09/17/24 12/09/24 12/08/24 21:00 doxycycline hyclate 100 mg tablet 100 mg PO bid #28 tabs 12/06/24 12/09/24 12/08/24 21:00 Active Medications Generic Name Dose Route Start Last Admin Trade Name Freq PRN Reason Stop Dose Admin Acetaminophen 1,000 mg 12/09/24 06:00 12/09/24 11:12 Acetaminophen 500 Mg Tab PO 12/09/24 18:00 1,000 mg PREOP AMERICO Administration Lactated Ringer's 1,000 mls @ 60 mls/hr 12/09/24 06:00 12/09/24 11:13 Lr IV 12/09/24 22:39 Not Given .[id number] AMERICO Lactated Ringer's 1,000 mls @ 15 mls/hr 12/09/24 06:00 12/09/24 11:13 Lr IV 12/10/24 05:59 15 mls/hr .Q24H AMERICO Administration NPO Date Last Intake of Fluids: 12/08/24 Time Last Intake of Fluids: 18:00 Date Last Intake of Solids: 12/08/24 Time Last Intake of Solids: 18:00 Past Medical History Medical History Family history of reaction to anesthesia Cough Anxiety and depression Mentally challenged History of seizures History of anesthesia reaction Prediabetes HLD (hyperlipidemia) HTN (hypertension) Elevated PSA Exercise / Class Metabolic Activity II 4-5 Yardwork/Stairs/Walk up hill Past Surgical History Surgical History History of tonsillectomy and adenoidectomy History of open reduction and internal fixation (ORIF) procedure Past Anesthesia History No Hx of Anesthesia Complications and No Family Hx of Anesthesia Complications History of PONV No Hx of PONV and No Hx of Motion Sickness Social History Smoking Status: Never smoker Hx Alcohol Use: No Hx Substance Use: No substance use type: does not use Physical Exam Vital Signs Last Vital Signs Temp 36.5 C 12/09/24 11:00 Pulse 94 H 12/09/24 11:00 Resp 20 12/09/24 11:00 BP 150/77 H 12/09/24 11:00 Pulse Ox 100 12/09/24 11:00 O2 Del Method Room Air 12/09/24 11:00 Constitutional no acute distress ENMT Mouth: no dentition abnormality Thyromental Distance: > or= 3.5 Finger Breadths Mallampati Class: II Neck normal visual inspection Respiratory normal respiratory effort; no respiratory distress Auscultation: lungs clear to auscultation bilaterally Cardiovascular Rate/Rhythm: regular rate and regular rhythm Heart Sounds: no murmur Musculoskeletal Spine: normal cervical ROM Psychiatric Orientation: alert and oriented x 3 Lab Results Anesthesia Preop Results Results Anesthesia Widget: WBC 11.83 K/ul (4.8-10.8) H 12/08/24 Hgb 12.8 g/dl (14.0-18.0) L 12/08/24 Hct 39.5 % (42.0-52.0) L 12/08/24 Plt 477 K/uL (130-400) H 12/08/24 Na 138 mmol/L (136-145) 12/08/24 K 4.2 mmol/L (3.5-5.1) 12/08/24 Cl 104 mmol/L (98-107) 12/08/24 CO2 28 mmol/L (21-32) 12/08/24 BUN 24 mg/dl (6-23) H 12/08/24 Creat 0.98 mg/dl (0.6-1.4) 12/08/24 Glucose Level 95 mg/dl (70-99(Fasting)) 12/08/24 HA1c Pending 12/09/24 Testing Electrocardiogram Date: 08/02/24 SR at 73bpm Other Testing Lower Extremity Arterial Duplex 09/07/24= RT and LT ABIs are normal. RT TBI mildly decreased. LT TBI normal. No evidence of hemodynamically significant arterial occlusion in the right LE. Day of Procedure Evaluation. Date of Surgery December 09, 2024 Height/Weight Height: 5 ft 6.5 in Weight: 76.204 kg Vital Signs Last Vital Signs Temp 36.5 C 12/09/24 11:00 Pulse 94 H 12/09/24 11:00 Resp 20 12/09/24 11:00 BP 150/77 H 12/09/24 11:00 Pulse Ox 100 12/09/24 11:00 O2 Del Method Room Air 12/09/24 11:00 Allergies Allergy/AdvReac Type Severity Reaction Status Date / Time No Known Allergies Allergy Verified 12/09/24 10:54 Medications Home Medications Medication Instructions Recorded Confirmed Last Taken lisinopril 5 mg tablet 5 mg PO QAM 01/30/24 12/09/24 12/08/24 09:00 rosuvastatin 20 mg tablet 20 mg PO HS 08/02/24 12/09/24 12/08/24 21:00 acetaminophen 500 mg tablet 1,000 mg (2 x 500 mg) PO Q8H #14 08/06/24 12/09/24 12/09/24 11:12 (Tylenol Extra Strength) tabs aspirin 325 mg tablet,delayed 325 mg PO QAM #30 tabs 08/06/24 12/09/24 12/08/24 09:00 release (Ecotrin) tamsulosin 0.4 mg capsule 0.4 mg PO HS #30 caps 09/17/24 12/09/24 12/08/24 21:00 doxycycline hyclate 100 mg tablet 100 mg PO bid #28 tabs 12/06/24 12/09/24 12/08/24 21:00 Active Medications Generic Name Dose Route Start Last Admin Trade Name Edenilsonq PRN Reason Stop Dose Admin Acetaminophen 1,000 mg 12/09/24 06:00 12/09/24 11:12 Acetaminophen 500 Mg Tab PO 12/09/24 18:00 1,000 mg PREOP AMERICO Administration Lactated Ringer's 1,000 mls @ 60 mls/hr 12/09/24 06:00 12/09/24 11:13 Lr IV 12/09/24 22:39 Not Given .[id number] AMERICO Lactated Ringer's 1,000 mls @ 15 mls/hr 12/09/24 06:00 12/09/24 11:13 Lr IV 12/10/24 05:59 15 mls/hr .Q24H AMERICO Administration Past Anesthesia History No Hx of Anesthesia Complications and No Family Hx of Anesthesia Complications History of PONV No Hx of PONV and No Hx of Motion Sickness NPO Date Last Intake of Fluids: 12/08/24 Time Last Intake of Fluids: 18:00 Date Last Intake of Solids: 12/08/24 Time Last Intake of Solids: 18:00 Home Medications Home Medications Medication Instructions Recorded Confirmed Last Taken lisinopril 5 mg tablet 5 mg PO QAM 01/30/24 12/09/24 12/08/24 09:00 rosuvastatin 20 mg tablet 20 mg PO HS 08/02/24 12/09/24 12/08/24 21:00 acetaminophen 500 mg tablet 1,000 mg (2 x 500 mg) PO Q8H #14 08/06/24 12/09/24 12/09/24 11:12 (Tylenol Extra Strength) tabs aspirin 325 mg tablet,delayed 325 mg PO QAM #30 tabs 08/06/24 12/09/24 12/08/24 09:00 release (Ecotrin) tamsulosin 0.4 mg capsule 0.4 mg PO HS #30 caps 09/17/24 12/09/24 12/08/24 21:00 doxycycline hyclate 100 mg tablet 100 mg PO bid #28 tabs 12/06/24 12/09/24 12/08/24 21:00 Active Medications Generic Name Dose Route Start Last Admin Trade Name Ebonie PRN Reason Stop Dose Admin Acetaminophen 1,000 mg 12/09/24 06:00 12/09/24 11:12 Acetaminophen 500 Mg Tab PO 12/09/24 18:00 1,000 mg PREOP AMERICO Administration Lactated Ringer's 1,000 mls @ 60 mls/hr 12/09/24 06:00 12/09/24 11:13 Lr IV 12/09/24 22:39 Not Given .[id number] AMERICO Lactated Ringer's 1,000 mls @ 15 mls/hr 12/09/24 06:00 12/09/24 11:13 Lr IV 12/10/24 05:59 15 mls/hr .Q24H AMERICO Administration Exercise / Class Metabolic Activity Metabolic Activity: II 4-5 Yardwork/Stairs/Walk up hill Physical Exam Constitutional: no acute distress Mouth: no dentition abnormality Thyromental Distance: > or= 3.5 Finger Breadths Mallampati Class: II Neck: + visual inspection normal Respiratory: + respiratory effort normal and + clear to auscultation bilaterally; no respiratory distress Cardiovascular: + regular rate and + regular rhythm; no murmur Musculoskeletal: no limited cervical ROM Psychiatric: + alert and + oriented x 3 ASA ASA2 Proposed Anesthesia Proposed Anesthesia: General Regional Regional Laterality: Right Site: Popliteal and Adductor Canal Risk / Benefits Reviewed With: PT / POA / Parent / Guardian, Accepts Plan and Informed Consent Obtained
[~2024-12-09 10:40] MED LIST: DEXAMETHASONE SOD INJ 4 MG/ML VIAL ONE; LIDOCAINE 2% 2 ML VIAL/AMP(20MG/ML) INFIL ONE; ONDANSETRON INJ 2 MG/ML 2 ML VIAL ONE; PROPOFOL IV EMULSION 10 MG/ML 20 ML VIAL IV ONE; ROPIVACAINE 0.5% 5 MG/ML 30 ML VIAL ONE
--- NOTE | 2024-12-09 11:09 | Electrocardiogram Report ---
Test Reason : Blood Pressure : */* mmHG Vent. Rate : 91 BPM Atrial Rate : 91 BPM P-R Int : 144 ms QRS Dur : 86 ms QT Int : 378 ms P-R-T Axes : 68 -6 57 degrees QTcB Int : 464 ms Normal sinus rhythm Normal ECG When compared with ECG of 02-Aug-2024 17:36, Aberrant conduction is no longer Present Confirmed by Kehinde Devi ([id number]) on 12/09/2024 11:08:59 AM Referred By: Hilario Coker Confirmed By: Kehinde Devi
[2024-12-09] MEDS: ACETAMINOPHEN 500 MG TAB PO SCH (11:12)
[2024-12-09] MEDS: LR 60ML/HR IV SCH (11:13)
[2024-12-09] MEDS: LR 15ML/HR IV SCH (11:13)
[2024-12-09] MEDS ORDERED: MIDAZOLAM HCL 1 MG/ML 2ML VIAL ONE (11:18)
[2024-12-09] MEDS ORDERED: ATROPINE SULFATE 0.1 MG/ML 10ML SYR IV PRN (11:38)
[2024-12-09] MEDS ORDERED: PROMETHAZINE HCL 6.25 MG in SODIUM CHLORIDE 0.9% 50 ML IV PRN (11:38)
[2024-12-09] MEDS ORDERED: HYDROmorphone INJ 2 MG/ML SYR/VIAL IV PRN (11:38)
[2024-12-09 12:24] LABS: Hemoglobin A1C 6.1 % (4.5-5.6)
[2024-12-09] MEDS: TRANEXAMIC ACID 1,000 MG **IV Pre-op IV SCH (13:34)
--- NOTE | 2024-12-09 13:34 | History & Physical Bridge Note ---
Date of Service December 09, 2024 History & Physical Bridge Note I have examined the patient, reviewed the History & Physical and in the interval since the performance of the History & Physical I have noted the following changes of clinical significance: no changes noted
[2024-12-09] MEDS ORDERED: PHENYLEPHRINE 100MCG/ML 5ML SYR ONE (14:11)
[2024-12-09] MEDS: GENTAMICIN SULFATE 40 MG/ML 2 ML VIAL ONE (15:32)
[2024-12-09] MEDS: VANCOMYCIN HCL 1000MG/20ML VIAL ONE (15:35)
[2024-12-09] MEDS ORDERED: HYDROmorphone INJ 2 MG/ML SYR/VIAL ONE (15:56)
[2024-12-09] MEDS ORDERED: DexMEDEtomidine HCL IV 100 MCG/ML VIAL IV ONE (17:25)
[2024-12-09] MEDS ORDERED: ONDANSETRON INJ 2 MG/ML 2 ML VIAL IV PRN (17:41)
[2024-12-09] MEDS ORDERED: diphenhydrAMINE Capsule 25 MG CAP PO PRN (17:41)
[2024-12-09] MEDS ORDERED: METOCLOPRAMIDE HCL INJ 5 MG/ML 2 ML VIAL IV PRN (17:41)
[2024-12-09] MEDS ORDERED: MAGNESIUM HYDROXIDE SUSP 30 ML UDC PO PRN (17:41)
[2024-12-09] MEDS ORDERED: HYDROmorphone INJ 0.5 MG/0.5 ML SYR IV PRN (17:46)
[2024-12-09] MEDS ORDERED: NALOXONE HCL 0.4 MG/1 ML VIAL/CARP IV PRN (17:46)
[2024-12-09] MEDS ORDERED: VANCOMYCIN CONSULT ACTIVE PRN ×2 (17:46→20:19)
--- NOTE | 2024-12-09 17:58 | Anesthesiology Progress Note ---
Date of Service December 09, 2024 Anesthesia Post Procedure Vital Signs Vital Signs: Temp Pulse Pulse Resp BP Pulse Ox O2 Del Method 12/09/24 17:50 75 12 124/91 100 Room Air 12/09/24 17:40 84 14 118/76 100 Oxymask 12/09/24 17:34 36.0 C L 79 14 126/72 100 Oxymask 12/09/24 11:00 36.5 C 94 H 20 150/77 H 100 Room Air O2 Flow Rate 12/09/24 17:50 12/09/24 17:40 4 12/09/24 17:34 6 12/09/24 11:00 Transfer of Care Handoff Completed per policy Notes Mental Status: alert / awake / arousable Patient Amnestic to Procedure: Yes Nausea / Vomiting: adequately controlled Pain: adequately controlled Airway Patency, RR, SpO2: stable & adequate BP & HR: stable & adequate Hydration State: stable & adequate Anesthetic Complications: no major complications apparent and Pt Satisfied with anesthetic care
--- NOTE | 2024-12-09 18:16 | Operative Report ---
PG Post Operative Report Pre & Post Diagnosis Operation Date: 12/09/24 12:25 Pre-Op Diagnosis: Abscess of lower right leg, Complication associated with musculoskeletal implant, Open fracture of right tibia and fibula, Status post ORIF of fracture of ankle Post-Op Diagnosis: Abscess of lower right leg, Complication associated with musculoskeletal implant, Open fracture of right tibia and fibula, Status post ORIF of fracture of ankle I identified the patient and participated in the time-out.: Yes Procedure Operation Date: 12/09/24 12:25 Actual Procedures p Right Distal Tibia and Fibula Hardware Removal, Irrigation and Debridement of fracture site, Application of external fixator and antibioticimpregnated stimulan beads placement (Right) - Hilario Coker MD Surgeon Hilario Coker MD Web Content Producer Jailene French PA-C Estimated Blood Loss 50 Findings See Below Distal tibia plate was loose. Screws all easily backed out. Interfragmentary screw was loosened by the obvious local infection of the bone. Cavitary bone defect following cortical and intramedullary debridement of the infection and fracture site. Vancomycin and gentamicin Stimulan beads were placed in the cavitary defect of the tibia and along the distal screw holes. After removal of the interfragmentary screw, there was motion across the fracture site. It seemed that the posterior cortex had fibrous union so the segment was not grossly unstable. External fixation was applied. Fibular hardware removed. Fibula was healed. Specimens Multiple swab lesions and bone tissue lesion for culture. Anesthesia Type General Regional Complications none Disposition Accompanied Patient To Recovery: No Disposition: Recovery Room Indications 64-year-old male who is now 4 months out from an acute open reduction and internal fixation following irrigation debridement of an open distal tibia shaft and closed segmental fibula fracture presented acutely to clinic at the recommendation of his wound care nurse for swelling and blistering of his leg. Physical exam and radiographs were concerning for deep infection and loosening of the hardware, so expedited irrigation debridement and hardware removal was i ndicated. Reviewed the risks the benefits and alternatives. We reviewed that the plan may include an external fixation frame should the fracture not be sufficiently healed. He and his primary caregivers, brother and [id number], were in agreement to proceed with surgical care that I described. Informed consent was reviewed and confirmed this morning to proceed. Description of Procedure On the day of surgery, the patient was greeted in the preoperative holding area. The informed consent was reviewed and confirmed by myself and the patient. The patient identified the surgical site and was marked by me. The patient was then turned over to anesthesia. Anesthesia performed a regional anesthetic block with excellent effect. Patient was then taken to the operating place upon the OR table and anesthesia was induced. The airway was secured. An ipsilateral hip bump was placed potentially rotate the limb. Bone foam positioner was placed on the leg. The skin was cleansed with alcohol on 4 x 4's to debride the superficial dry skin that had collected over the distal leg. The limb was then prepped and draped using Betadine scrub and paint due to the open blistering areas. Surgical timeout was called by the circulating nurse, and verified by all present. Antibiotics and TXA had been infused. Equipment was available and functional. The limb was then elevated for several minutes before the tourniquet was inflated to 250 mmHg for a total of 2 hours. The previous incision was identified and an incision was made slightly smaller than the original. Dissection was carried down through the eschar. Bovie electrocautery was used for hemostasis. Brought the dissection directly onto the distal tibial plate and was carried down distally and to expose the plate. The plate was firmly fixed with the screws however the screws easily backed out with the auto driver. Loosening developed after removing 2 of the several screws. All the screws of the plate were removed. Fracture segment still seem to be stable. There was an obvious fragmentation and infection involvement with mucopurulent drainage about some of the screw holes after the plate removal. The butterfly fragment was eroded somewhat and removed and fragments from the anterior distal tibia. The interfragmentary screw was loose on the proximal side and it was easily backed out. At this point, the fracture gain instability. The posterior cortex seem to have some fibrous union but there was motion through the majority of the visible fracture. The cavitary defect was then sharply debrided using curettes and a rongeur. All abnormal bony mucopurulent tissue was removed. Fluoroscopic exam was used to assist on removing a broken drill bit from the canal near the site. This was easily accomplished using a hemostat. All hardware had been removed from the tibia. Extensive sharp debridement carried out along the periosteum and through the sinus tracts. The canal was debrided sharply using curettes. We then ran 6 L of high flow normal saline irrigation through cystoscopy tubing. Fresh drapes were placed. Stimulant beads were mixed with vancomycin and gentamicin. These were formed into medium and small fragments. These were placed up into the cavitary defect and down into the distal tibia through that defect. The distal row screw holes along the plafond were also filled. Given the instability through this fracture segment, an external fixator was indicated. A standard delta frame was placed. 2 proximal tibia pins were placed through the guide. A single central thread pin was placed to the calcaneus using fluoroscopic guidance. External fixator bars were placed. The fracture was held and did not need much reduction. Frame was tightened after ensuring appropriate alignment on fluoroscopy. We then began closure of the incision. The medial skin flap had shown some ulceration through his initial episode of care. It seemed viable and it was closed under minimal tension using Algar Donati stitches with 2-0 nylon. The sinus tracts were sharply debrided and left open for draining. With the tibia stabilized by the frame, attention was then directed to the fibula. This incision is well-healed. It was opened sharply slightly smaller than the original. Soft tissue dissection was carried out carefully using electrocautery until we encountered the plate to the fascia. This plane was then exploited proximally and distally until the plate was visible for an enough for screw removal. The screws were firmly fixed to the plate. They were all backed out without complication. The plate was removed. 2 interfragmentary screws were removed. The fibula was well-healed and moved as a unit. This wound was irrigated with 3 L of normal saline through high flow cystoscopy tubing. 0 Vicryl suture was used minimally to reapproximate the deep fascia over the fibula. 3-0 Vicryl was used in the deep dermal layer, followed by yuki. All the wounds were dressed with Xeroform, plain gauze, ABDs and contained by Webril and an Tao wrap. Pin sites were wrapped in Xeroform. The patient tolerated the procedure well, was explained the operative without complication, and transferred to the recovery area in stable condition. Disposition: The patient will be admitted to the hospital to initiate empiric antibiotic therapy. Will follow the operating room cultures to tailor antibiotics. Infectious disease consult will be made to determine type and duration of antibiotic therapy. The plan will be to be in the external fixator until infection is under control. He will be nonweightbearing to the limb until then. DVT prophylaxis will be low molecular weight heparin and then likely transition to aspirin after we ensure there are no further trips to the operating room in the near term. Will consult wound care to assist with pin sites as well as the sinus tract wounds that were debrided and needed to be left open. Physician medical practice assistant attestation: Jailene French PA-C was present and scrubbed for the duration of the case. Skilled assistance was essential to prepping/draping, patient positioning, retraction, and assistance with wound closure. I attest to the content of the Intraoperative Record and any orders documented therein. Any exceptions are noted below.
--- NOTE | 2024-12-09 18:57 | XRay Report ---
3 views of the right lower leg are submitted for review. Comparison is made to the prior examination dated 08/02/2024 Findings: There has been interval reduction of the previously seen fractures of the distal tibial and fibular shafts. There is apparent methylmethacrylate at the tibial fracture line. There are new transverse lucencies within the distal tibial and fibular shafts consistent with prior instrumentation. An external fixative device is present. There is apparent callus formation No subluxation or dislocation is seen. No significant arthritic changes are noted. No other osseous abnormality is identified. There are surgical skin yuki in the lateral lower calf Impression: Subacute fractures of the distal right tibia and fibula Electronically signed by Manohar Doyle 12-09-2024 6:56 PM
--- NOTE | 2024-12-09 20:52 | Hospitalist Consultation ---
Date of Consultation December 09, 2024 Assessment & Plan (1) Abscess of lower leg: (2) Status post ORIF of fracture of ankle: (3) HTN (hypertension): (4) HLD (hyperlipidemia): (5) BPH (benign prostatic hyperplasia): Plan Mr. Fajardo is a 64 y.o. M with PMHx of HTN, HLD, BPH who presents to the hospital due to abscess of lower right leg, complication associated with musculoskeletal implant, open fracture of right tibia and fibula, and s/p ORIF of fracture of ankle. #HTN - hold home medication lisinopril 5 mg until morning BMP is reviewed to evaluate kidney function - BMP AM #HLD - continue home rosuvastatin 20 mg #BPH - continue home tamsulosin 0.4 mg - continue to monitor urinary output Hospitalist team will continue to follow. Thank you for allowing us to participate in the care of this patient. Supervising Physician Co-Signing Physician Notes attending addendum: I have physically seen this patient, have supervised the medical residents activities, and agree with the H&P unless as otherwise noted. Assessment and Plan: The patient is a 64-year-old male with a past medical history including hypertension, hyperlipidemia, and BPH. He underwent surgery today for abscess to lower right leg, complcation associated with musculoskeletal implant, open fracture right tibia and fibula, status post ORIF of ankle fracture. Patient seen postoperatively medically stable. Hypertension- Will hold lisinopril 5 mg daily, until BMP is reviewed in the a.m. Hyperlipidemia- Continue rosuvastatin 20 mg daily BPH- Continue tamsulosin [facility] hospitalist service to follow during hospital stay History of Present Illness Reason for Consultation: Management of comorbidities Requesting Physician: COLIN Bowling Attending Physician: Hilario Coker MD History of Present Illness Mr. Fajardo is a 64 y.o. M with PMHx of HTN, HLD, BPH who presents to the hospital due to abscess of lower right leg, complication associated with musculoskeletal implant, open fracture of right tibia and fibula, and s/p ORIF of fracture of ankle. We were consulted to manage comorbidities. Patient is feeling well. Denies SOB, CP, AP, vision changes, pain, fevers. No acute complaints. Allergies Allergy/AdvReac Type Severity Reaction Status Date / Time No Known Allergies Allergy Verified 12/09/24 10:54 Home Medications Medication Instructions Recorded Confirmed Type lisinopril 5 mg tablet 5 mg PO QAM 01/30/24 12/09/24 History rosuvastatin 20 mg tablet 20 mg PO HS 08/02/24 12/09/24 History acetaminophen 500 mg tablet 1,000 mg (2 x 500 mg) PO Q8H #14 08/06/24 12/09/24 Rx (Tylenol Extra Strength) tabs aspirin 325 mg tablet,delayed 325 mg PO QAM #30 tabs 08/06/24 12/09/24 Rx release (Ecotrin) tamsulosin 0.4 mg capsule 0.4 mg PO HS #30 caps 09/17/24 12/09/24 Rx doxycycline hyclate 100 mg tablet 100 mg PO bid #28 tabs 12/06/24 12/09/24 Rx Patient History Medical History Family history of reaction to anesthesia Cough Anxiety and depression Mentally challenged History of seizures History of anesthesia reaction Prediabetes HLD (hyperlipidemia) HTN (hypertension) Elevated PSA Surgical History History of tonsillectomy and adenoidectomy History of open reduction and internal fixation (ORIF) procedure Social History Smoking Status: Never smoker Second Hand Exposure: No; Do You Dip or Chew Tobacco: No; Tobacco Cessation Education Requested by Patient: No Hx Alcohol Use: No Hx Substance Use: No Preferred Language: Citizen Of [place] Communication Ability: Effective Credit Product Analyst Required: No Beliefs That Will Affect Care: None Current Living Situation: Alone Current Living Situation Comment: lives right next door to brother and sister in law;they are present daily Other Information That Helps Us Care for You: No Feels Safe at Home: Yes Safety Concerns: Feels Safe At This Time Assistive Devices: None Review of Systems Constitutional: as per Subjective / HPI Physical Exam Constitutional: WD/WN, vitals as above Respiratory: normal respiratory effort, lungs clear to auscultation Cardiovascular: RRR, no murmur, no edema Gastrointestinal (Abdomen): normal bowel sounds, soft, nontender, no hepatosplenomegaly Skin: no rashes, warm and dry Psychiatric: A+Ox3, euthymic affect Results & Data Results & Data Vital Signs (Past 12 Hours) Vital Signs Temp Pulse Pulse Pulse Resp BP Pulse Ox 12/09/24 19:45 36.3 C L 80 16 113/74 92 12/09/24 19:30 80 14 108/72 96 12/09/24 19:15 83 16 102/70 97 12/09/24 19:00 83 16 103/64 96 12/09/24 18:45 78 12 123/64 95 12/09/24 18:30 36.4 C L 85 12 134/68 100 12/09/24 18:20 76 14 102/55 L 98 12/09/24 18:10 72 16 129/73 100 12/09/24 18:00 76 12 124/67 99 12/09/24 17:50 75 12 124/91 100 12/09/24 17:40 84 14 118/76 100 12/09/24 17:34 36.0 C L 79 14 126/72 100 12/09/24 11:00 36.5 C 94 H 20 150/77 H 100 O2 Del Method O2 Flow Rate 12/09/24 19:45 Room Air 12/09/24 19:30 Room Air 12/09/24 19:15 Room Air 12/09/24 19:00 Room Air 12/09/24 18:45 Room Air 12/09/24 18:30 Room Air 12/09/24 18:20 Room Air 12/09/24 18:10 Room Air 12/09/24 18:00 Room Air 12/09/24 17:50 Room Air 12/09/24 17:40 Oxymask 4 12/09/24 17:34 Oxymask 6 12/09/24 11:00 Room Air Resident Activity Tracking Resident Involvement: Resident Care Provided Care Provided: Adult Hospital Medicine
[2024-12-09 21:21] LABS: Creatinine Clr Calc Pharmacy 74.9 ml/min
[2024-12-09] MEDS: PIPERACILLIN/TAZOBACTAM 4.5 GM/100 ML BAG IV SCH (21:38)
[2024-12-09] MEDS: SENNA 8.6 MG TAB PO SCH (21:47)
[2024-12-09] MEDS: TAMSULOSIN HCL 0.4 MG CAP PO SCH (21:47)
[2024-12-09] MEDS: DOCUSATE SODIUM 100 MG CAP PO SCH (21:47)
[2024-12-09] MEDS: ROSUVASTATIN CALCIUM 20 MG TAB PO SCH (21:47)
[2024-12-09] MEDS: SODIUM CHLORIDE 0.9% 1,000 ML IV SCH (22:04)
[2024-12-09] MEDS: VANCOMYCIN HCL 1,500 MG in SODIUM CHLORIDE 0.9% 500 ML IV ONE (22:34)
--- NOTE | 2024-12-10 02:00 | Billing Data ---
Date of Service December 10, 2024 Coding Level of Care Code 68280 IN/OBS CONSULT LVL 3,45M
[2024-12-10] MEDS ORDERED: VANCOMYCIN HCL 1,250 MG in SODIUM CHLORIDE 0.9% 250 ML IV SCH (04:00)
--- NOTE | 2024-12-10 08:51 | Infectious Disease Consult ---
Date of Consultation December 10, 2024 Assessment & Plan (1) Osteomyelitis of tibia: (2) Status post ORIF of fracture of ankle: (3) Surgical wound, non healing: (4) S/P hardware removal: Plan Problems: #R tib/fib ORIF c/b hardware associated osteomyelitis s/p I&D with removal of hardware, ex-fix, antibiotic beads (12/09/24) Micro: 12/09 R tibia swab cx: pending. GS no org 12/09 R tibia bone cx: pending. GS rare GPCs 12/09 R leg deep tibia cx: pending. rare GPCs 12/09 R leg blister #2 cx: pending. few GPCs 12/09 R leg blister #1 cx: pending. GS no org 12/03 RLE wound cx: MSSA 10/19 RLE wound cx: MSSA 08/23 RLE wound cx: MSSA Abx: Vanc 12/09 - present Zosyn 12/09 - present Cefazolin 12/09 64 yo M with HTN, HLD, BPH with open R distal tib/fib fracture s/p I&D and ORIF (08/03/24) c/b nonhealing wounds followed by wound clinic, admitted with hardware- associated osteomyelitis s/p I&D with hardware removal, ex-fix (12/09/24). Did have RLE wound cultures growing MSSA from 08/23/24 (treated with doxy), 10/19/24 (treated with Keflex), and 12/03/24 (treated with doxy). He was seen in ortho clinic on 12/08 where there was concern for deep infection given XR and exam findings. He was admitted on 12/09 and underwent RLE I&D and removal of all hardware with application of ex fix and placement of antibiotic beads. Per operative note, hardware was loose with obvious infection of tibia bone. He will probably need revision fixation when clear of infection. OR cultures are pending, and he is currently on vanc and Zosyn. Recommendations: - Follow-up OR cultures - Anticipate that this may all be MSSA infection, but will continue on vanc and Zosyn for now pending OR cultures. If only growing MSSA, can narrow to cefazolin 2 g IV q8h - Will need a 6 week course of IV antibiotics via PICC for osteomyelitis - Monitor CBC, CMP while on IV antibiotics - Will arrange for ID follow-up in the [facility] clinic which is starting soon Please note that ID does not round or write notes over the weekend. If questions or concerns arise, please contact the Infectious Disease Call Center and ask to speak with the covering ID physician. Consultation Information This patient recommendation is based on a telemedicine consult request which was completed asynchronously through chart review and information provided by the primary physician. The patient was not seen or examined today. The evaluation is consultative in nature and all patient care and treatment decisions can either be accepted or rejected by the patient's primary hospital-based treating physician using their own independent medical judgment for their patient. Photo Booth Operator contact information: Please call [facility] . (Phone Number For Physician Use Only) An e-consult was performed as the video cart is nonfunctional. Time Spent Reviewing Chart: 31+ minutes History of Present Illness Reason for Consultation: Infection of R distal tib/fib ORIF Attending Physician: Hilario Coker MD History of Present Illness 64 yo M with HTN, HLD, BPH with open R distal tib/fib fracture s/p I&D and ORIF (08/03/24) c/b nonhealing wounds followed by wound clinic. Did have RLE wound cultures growing MSSA from 08/23/24 (treated with doxy), 10/19/24 (treated with Keflex), and 12/03/24 (treated with doxy). He was seen in ortho clinic on 12/08 where there was concern for deep infection given XR and exam findings. He was admitted on 12/09 and underwent RLE I&D and removal of all hardware with application of ex fix and placement of antibiotic beads. Per operative note, hardware was loose with obvious infection of tibia bone. He will probably need revision fixation when clear of infection. OR cultures are pending, and he is currently on vanc and Zosyn. Allergies Allergy/AdvReac Type Severity Reaction Status Date / Time No Known Allergies Allergy Verified 12/09/24 10:54 Home Medications Medication Instructions Recorded Confirmed Type lisinopril 5 mg tablet 5 mg PO QAM 01/30/24 12/09/24 History rosuvastatin 20 mg tablet 20 mg PO HS 08/02/24 12/09/24 History acetaminophen 500 mg tablet 1,000 mg (2 x 500 mg) PO Q8H #14 08/06/24 12/09/24 Rx (Tylenol Extra Strength) tabs aspirin 325 mg tablet,delayed 325 mg PO QAM #30 tabs 08/06/24 12/09/24 Rx release (Ecotrin) tamsulosin 0.4 mg capsule 0.4 mg PO HS #30 caps 09/17/24 12/09/24 Rx doxycycline hyclate 100 mg tablet 100 mg PO bid #28 tabs 12/06/24 12/09/24 Rx Patient History Medical History Family history of reaction to anesthesia Cough Anxiety and depression Mentally challenged History of seizures History of anesthesia reaction Prediabetes HLD (hyperlipidemia) HTN (hypertension) Elevated PSA Surgical History History of tonsillectomy and adenoidectomy History of open reduction and internal fixation (ORIF) procedure Social History Smoking Status: Never smoker Second Hand Exposure: No; Do You Dip or Chew Tobacco: No; Tobacco Cessation Education Requested by Patient: No Hx Alcohol Use: No Hx Substance Use: No Preferred Language: Citizen Of [place] Communication Ability: Effective Honey Processor Required: No Beliefs That Will Affect Care: None Current Living Situation: Alone Current Living Situation Comment: lives right next door to brother and sister in law;they are present daily Other Information That Helps Us Care for You: No Feels Safe at Home: Yes Safety Concerns: Feels Safe At This Time Assistive Devices: None Results & Data Vital Signs (Past 12 Hours) Vital Signs Temp Pulse Pulse Resp BP Pulse Ox O2 Del Method 12/10/24 07:47 Room Air 12/10/24 07:26 36.9 C 74 15 120/75 98 Room Air 12/10/24 02:48 36.9 C 80 16 118/74 96 Room Air 12/09/24 23:03 36.7 C 99 H 18 136/79 97 Room Air Diagnostic Findings Tibia/Fibula X-Ray 12/09/24 17:50 3 views of the right lower leg are submitted for review. Comparison is made to the prior examination dated 08/02/2024 Findings: There has been interval reduction of the previously seen fractures of the distal tibial and fibular shafts. There is apparent methylmethacrylate at the tibial fracture line. There are new transverse lucencies within the distal tibial and fibular shafts consistent with prior instrumentation. An external fixative device is present. There is apparent callus formation No subluxation or dislocation is seen. No significant arthritic changes are noted. No other osseous abnormality is identified. There are surgical skin yuki in the lateral lower calf Impression: Subacute fractures of the distal right tibia and fibula Electronically signed by Manohar Doyle 12-09-2024 6:56 PM Medications Administered Current Inpatient Medications Acetaminophen (Acetaminophen 325 Mg Tab) 650 mg PO Q6H PRN PRN Reason: Fever or Headache Stop: 01/08/25 17:40 Diphenhydramine HCl (Diphenhydramine Capsule 25 Mg Cap) 25 mg PO Q8H PRN PRN Reason: Itching Stop: 01/08/25 17:40 Docusate Sodium (Docusate Sodium 100 Mg Cap) 100 mg PO BID [facility] Stop: 01/08/25 20:59 Last Admin: 12/10/24 09:35 Dose: 100 mg Hydromorphone HCl (Hydromorphone Inj 0.5 Mg/0.5 Ml Syr) 0.5 mg IV Q4H PRN PRN Reason: Pain or Pre PT Stop: 12/23/24 17:45 Piperacillin Sod/Tazobactam Sod (Zosyn) 4.5 gm in 100 mls @ 25 mls/hr IV Q8H [facility]; Protocol Stop: 12/16/24 19:59 Last Infusion: 12/10/24 08:35 Dose: Infused Vancomycin HCl (Vancomycin Hcl) 1,000 mg in 270 mls @ 200 mls/hr IV Q12H [facility] Stop: 12/17/24 09:59 Last Admin: 12/10/24 09:36 Dose: 200 mls/hr Magnesium Hydroxide (Magnesium Hydroxide Susp 30 Ml Udc) 30 ml PO Q6H PRN PRN Reason: Constipation Stop: 01/08/25 17:40 Metoclopramide HCl (Metoclopramide Hcl Inj 5 Mg/Ml 2 Ml Vial) 10 mg IV Q6H PRN PRN Reason: Nausea/Vomiting Stop: 01/08/25 17:40 Miscellaneous Information (Vancomycin Consult Active) 1 each N/A UD PRN PRN Reason: Consult Stop: 01/08/25 20:18 Multivitamins (Multivitamin Tab) 1 tab PO QAM [facility] Stop: 01/09/25 08:59 Last Admin: 12/10/24 09:36 Dose: 1 tab Naloxone HCl (Naloxone Hcl 0.4 Mg/1 Ml Vial/Carp) 0.1 mg IV Q5M PRN PRN Reason: Oversedation/Resp Depression Stop: 01/08/25 17:45 Ondansetron HCl (Ondansetron Inj 2 Mg/Ml 2 Ml Vial) 4 mg IV Q6H PRN PRN Reason: Nausea/Vomiting Stop: 01/08/25 17:40 Oxycodone HCl (Oxycodone Hcl Ir 5 Mg Tab (Immediate Release)) 5 - 10 mg PO Q4H PRN PRN Reason: Pain or Pre PT Stop: 12/23/24 17:45 Last Admin: 12/09/24 23:55 Dose: 10 mg Rosuvastatin Calcium (Rosuvastatin Calcium 20 Mg Tab) 20 mg PO [facility] Stop: 01/08/25 20:59 Last Admin: 12/09/24 21:47 Dose: 20 mg Sennosides (Senna 8.6 Mg Tab) 17.2 mg PO [facility] Stop: 01/08/25 20:59 Last Admin: 12/09/24 21:47 Dose: 17.2 mg Tamsulosin HCl (Tamsulosin Hcl 0.4 Mg Cap) 0.4 mg PO [facility] Stop: 01/08/25 20:59 Last Admin: 12/09/24 21:47 Dose: 0.4 mg (3) Surgical wound, non healing Encounter type: initial encounter Qualified Code(s): T81.89XA - Other complications of procedures, not elsewhere classified, initial encounter
--- NOTE | 2024-12-10 09:07 | Orthopedic Progress Note ---
Date of Service December 10, 2024 Assessment & Plan (1) S/P hardware removal: POD 1 from a right ankle I&D, hardware removal and external fixator application - Continue to be nonweightbearing in the right lower extremity. Can work with PT/OT for mobilization. - DVT prophylaxis with Lovenox - Infectious disease consult has been placed: Pending cultures of the right lower extremity. Currently on vancomycin and Zosyn. - Wound care has also been consulted. I did also discussed with the nurse care for the external fixator. Dressings will be taken down postop day 2. Dr. Coker will be here over the weekend to assist with this. Further instructions will be given on 12/11/2024. Please leave dressing intact until then. - Appreciate assistance from hospitalist. - Please reach out to orthopedics with any other question or concerns. Subjective Operation Date: 12/09/24 12:25 Actual Procedures p Right Distal Tibia and Fibula Hardware Removal, Irrigation and Debridement of fracture site, Application of external fixator and antibioticimpregnated stimulan beads placement (Right) - Hilario Coker MD Patient is POD 1 from a right distal tibia and fibula hardware removal, I&D, external fixator application. He is doing well today's visit. Denies any significant pain. He is resting in his hospital bed with his right lower extremity elevated on pillows. He does not have any questions or concerns today. Review of Systems All systems reviewed & are unremarkable except as noted in HPI & below. Physical Exam General: Patient is alert at today's visit. No acute distress. Right lower extremity is resting comfortably elevated on pillows. No signs of drainage. Dressings are dry and intact. Hardware is intact. He is neurovascularly intact in the right lower extremity. Results & Data Results & Data Laboratory Results . Diagnostic Findings . PG Care Time/CCT Total # of Minutes Spent Total Time Spent with Patient: Total time spent is greater than 50% in coordination of care (as documented) at patient's floor/unit and/or counseling patient: Coding Level of Care Code 90416 Post Operative Follow-Up Diagnoses S/P hardware removal Z98.890
[2024-12-10] MEDS: MULTIVITAMIN TAB PO SCH (09:36)
[2024-12-10] MEDS: VANCOMYCIN HCL 1,000 MG/270 ML BAG IV SCH (09:36)
[2024-12-10 09:38] LABS: Anion Gap 6.0 (3-11); Blood Urea Nitrogen 18.0 mg/dl (6-23); Calcium 8.3 mg/dl (8.6-10.3); Carbon Dioxide 26.0 mmol/L (21-32); Chloride 105.0 mmol/L (98-107); Creatinine Clr Calc Pharmacy 74.1 ml/min; Glucose 101.0 mg/dl (70-99(Fasting)); Potassium 4.2 mmol/L (3.5-5.1); Sodium 137.0 mmol/L (136-145)
--- NOTE | 2024-12-10 10:24 | Pharmacy Report ---
Pharmacy PK ABX Note - Date of Service December 10, 2024 - Assessment and Plan Assessment 64 year old M receiving empiric vancomycin and Zosyn for treatment of osteomyelitis of tibia s/p right tib/fib ORIF hardware removal w/ antibiotic bead placement on 12/09/24. Pertinent microbiologic data includes: multiple ankle/leg cultures (12/09/24) pending. right leg culture 12/03/24 growing MSSA. Prior MSSA infections in July and September of this year as well. ID consulted. Plan is to continue vancomycin/Zosyn at this time w/ likely de- escalation to cefazolin if cultures only grow MSSA. Anticipating 6 week course of treatment. Day # 1 of vancomycin/Zosyn therapy. Plan Vancomycin * Loading dose: 1500 mg IV x 1 * Maintenance dose: 1000 mg IV every 12 hours * Regimen is predicted to achieve target AUC/MARTA of 400-600 mg/L.hr * Random level ordered for: 12/12/24 Pharmacy will continue to follow and will adjust dose/frequency as necessary. Thank you. Pharmacy has transitioned to AUC monitoring for vancomycin. AUC/MARTA is the preferred PK/PD target and is associated with decreased risk of nephrotoxicity compared to traditional trough targets.
--- NOTE | 2024-12-10 10:54 | Fluoroscopy Report ---
FL ankle RT min 3V RTN CLINICAL HISTORY: RIGHT DISTAL TIB FIB HARDWARE REMOVAL, POSS EXT FIXATION COMPARISON STUDY: 08/03/2024 FLUOROSCOPY TIME: 43 seconds FLUOROSCOPY IMAGES: 2 EXPOSURE DOSE: 1 mGy FINDINGS: Fluoroscopy was provided for hardware removal at the right tibia and fibula. IMPRESSION: Intraoperative fluoroscopy. ACT 112: Negative or not required by law. Electronically signed by: Brayan Rico M.D. 12/10/2024 10:53 AM
[2024-12-10] MEDS ORDERED: ENOXAPARIN INJ 30 MG/0.3 ML SYR SQ SCH (17:45)
[2024-12-10] MEDS: ACETAMINOPHEN 325 MG TAB PO PRN (19:23)
[2024-12-11 07:46] LABS: Creatinine Clr Calc Pharmacy 68.8 ml/min
--- NOTE | 2024-12-11 15:21 | Orthopedic Progress Note ---
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 Making good progress. - Nonweightbearing to the right lower extremity in the external fixator. Range of motion as tolerated to available joints. - Elevate RLE whenever seated or supine - Continue Ancef coverage of his MSSA growing from all cultures. Appreciate ID consult. Appreciate PICC line - Continue current pain regimen - Will transition to oral aspirin therapy at discharge for VTE prophylaxis indefinitely - PT and OT evaluations for disposition Dispo: Looks to be stable for discharge when appropriate next level of care can be established. Will need assistance with ADLs given his nonweightbearing status and ongoing parenteral antibiotic therapy for his osteomyelitis. Will arrange orthopedic follow-up in 2 weeks. Will need pin care teaching and dressing changes from nursing. Subjective Reports tolerable pain with Tylenol. Nursing reports that he has been doing well. He had his PICC line placed today. Appetite has been good. Review of Systems All systems reviewed & are unremarkable except as noted in HPI & below. Physical Exam RLE: Dressing was taken down. Ex-Fix pin sites were clean and dry without acti ve drainage. The tibial wound was well-approximated without erythema or active drainage. There are some mild ecchymosis at the distal aspect of the incision which is not unexpected. The fibular incision is well-approximated with punctate dark red drainage. Blistering wounds with some granulation tissue and no active drainage. Looks good overall. DNVI. Regular active motion of the toes. Constitutional WD/WN, vitals as above no acute distress and not intoxicated appearing Respiratory normal respiratory effort; no labored breathing Cardiovascular Extremities: normal capillary refill Results & Data Results & Data Laboratory Results . Diagnostic Findings . 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
[2024-12-12 09:00] LABS: Hematocrit (blood only) 37.7 % (42.0-52.0); Hemoglobin 11.8 g/dl (14.0-18.0); Immature Granulocytes # (auto) 0.03 K/uL (0.01-0.20); Immature Granulocytes % (auto) 0.3 %; Mean Corpuscular Hemoglobin 26.2 pg (25.0-34.0); Mean Corpuscular Volume 83.8 fL (80.0-100.0); Platelet Count 410 K/uL (130-400); RDW Standard Deviation 42.2 fL (36.4-46.3); Red Blood Count 4.50 M/uL (4.70-6.10); White Blood Count 9.41 K/ul (4.8-10.8)
[2024-12-12 09:20] LABS: Anion Gap 7.0 (3-11); Blood Urea Nitrogen 15.0 mg/dl (6-23); Calcium 8.9 mg/dl (8.6-10.3); Carbon Dioxide 29.0 mmol/L (21-32); Chloride 98.0 mmol/L (98-107); Creatinine Clr Calc Pharmacy 81.9 ml/min; Glucose 91.0 mg/dl (70-99(Fasting)); Potassium 4.1 mmol/L (3.5-5.1); Sodium 134.0 mmol/L (136-145)
--- NOTE | 2024-12-12 09:48 | Orthopedic Progress Note ---
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 Making good progress. - Nonweightbearing to the right lower extremity in the external fixator. Range of motion as tolerated to available joints. - Elevate RLE whenever seated or supine - Continue Ancef coverage of his MSSA growing from all cultures. - Continue current pain regimen - Will transition to oral aspirin therapy at discharge for VTE prophylaxis indefinitely - PT and OT for mobilization - Will obtain secondary opinion from foot and ankle subspecialty about definitive management. Dispo: Looks to be stable for discharge when appropriate next level of care can be established. Will need assistance with ADLs given his nonweightbearing status and ongoing parenteral antibiotic therapy for his osteomyelitis. Will arrange orthopedic follow-up in 2 weeks. Will need pin care teaching and dressing changes from nursing. Seeking other opinions regarding definitive fixation for the septic nonunion -for asked Dr. Efrem Devi to evaluate while inpatient. Can also consider orthopedic trauma as an outpatient. Subjective No new issues. Doing okay. Was out of bed to the chair. Pain is tolerable. Review of Systems All systems reviewed & are unremarkable except as noted in HPI & below. Physical Exam RLE: The dressings are clean and dry and intact. Dressings were changed. The wounds were well-approximated without erythema or active drainage. The questionable medial edge of the anterior incision appears to be healing well. Ulcerated lesions with spotting drainage onto absorbent dressing. New dressings applied. DNVI. Pin sites mostly okay. Some crusting by the medial calcaneal pin amenable to the routine pin care. Constitutional WD/WN, vitals as above no acute distress and not intoxicated appearing Respiratory normal respiratory effort; no labored breathing Cardiovascular Extremities: normal capillary refill Results & Data Results & Data Laboratory Results H & H 12/12/24 Range/Units 07:45 Hgb 11.8 L (14.0-18.0) g/dl Hct 37.7 L (42.0-52.0) % Laboratory Tests 12/08/24 12/08/24 12/09/24 11:32 11:32 10:57 WBC Hgb Hct ESR 64 H Hemoglobin A1c 6.1 H C-Reactive Protein 6.00 H 12/12/24 12/12/24 07:45 07:45 WBC 9.41 Hgb 11.8 L Hct 37.7 L ESR 70 H Hemoglobin A1c C-Reactive Protein 2.61 H Diagnostic Findings . 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
[2024-12-13 07:52] LABS: Anion Gap 8.0 (3-11); Blood Urea Nitrogen 20.0 mg/dl (6-23); Calcium 8.9 mg/dl (8.6-10.3); Carbon Dioxide 26.0 mmol/L (21-32); Chloride 100.0 mmol/L (98-107); Creatinine Clr Calc Pharmacy 70.9 ml/min; Glucose 110.0 mg/dl (70-99(Fasting)); Potassium 4.2 mmol/L (3.5-5.1); Sodium 134.0 mmol/L (136-145)
--- NOTE | 2024-12-13 09:08 | Infectious Disease Progress Nt ---
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 GS no org 12/09 R tibia bone cx: MSSA. rare GPCs 12/09 R leg deep tibia cx: MSSA. rare GPCs 12/09 R leg blister #2 cx: MSSA. few GPCs 12/09 R leg blister #1 cx: MSSA. GS no org 12/03 RLE wound cx: MSSA 10/19 RLE wound cx: MSSA 08/23 RLE wound cx: MSSA Abx: Vanc 12/09 - 12/10 Zosyn 12/09 - 12/10 Cefazolin 12/09, 12/10 - present 64 yo M with HTN, HLD, BPH with open R distal tib/fib fracture s/p I&D and ORIF (08/03/24) c/b nonhealing wounds followed by wound clinic, admitted with hardware- associated osteomyelitis s/p I&D with hardware removal, ex-fix (12/09/24). Did have RLE wound cultures growing MSSA from 08/23/24 (treated with doxy), 10/19/24 (treated with Keflex), and 12/03/24 (treated with doxy). He was seen in ortho clinic on 12/08 where there was concern for deep infection given XR and exam findings. He was admitted on 12/09 and underwent RLE I&D and removal of all hardware with application of ex fix and placement of antibiotic beads. Per operative note, hardware was loose with obvious infection of tibia bone. He will probably need revision fixation when clear of infection. OR cultures all growing MSSA. Recommendations: - Needs PICC placement for outpatient antibiotics - Continue cefazolin 2 g IV q8h to complete a 6 week course through 01/19/25 - Check weekly CBC with diff, CMP while on cefazolin - Will arrange for ID follow-up in the [facility] prior to end of therapy Will sign off. Admission and Anticipated Discharge Date Admission Date: December 09, 2024 Subjective This patient recommendation is based on a telemedicine consult request which was completed asynchronously through chart review and information provided by the primary physician. The patient was not seen or examined today. The evaluation is consultative in nature and all patient care and treatment decisions can either be accepted or rejected by the patient's primary hospital-based treating physician using their own independent medical judgment for their patient. Time Spent Reviewing Chart: 21 - 30 minutes OR cultures growing MSSA Results & Data Vital Signs (Past 12 Hours) Vital Signs Temp Pulse Resp BP Pulse Ox O2 Del Method 12/13/24 07:32 36.5 C 85 18 106/70 97 Room Air 12/13/24 07:25 Room Air 12/12/24 22:52 36.6 C 66 16 110/68 98 Room Air Laboratory Results BMP 12/12/24 12/13/24 07:45 07:11 Sodium 134 L 134 L Potassium 4.1 4.2 Chloride 98 100 Carbon Dioxide 29 26 BUN 15 20 Creatinine 0.84 0.97 Glucose 91 110 H Calcium 8.9 8.9 Medications Administered Current Inpatient Medications Acetaminophen (Acetaminophen 325 Mg Tab) 650 mg PO Q6H PRN PRN Reason: Fever or Headache Stop: 01/08/25 17:40 Last Admin: 12/12/24 18:20 Dose: 650 mg Diphenhydramine HCl (Diphenhydramine Capsule 25 Mg Cap) 25 mg PO Q8H PRN PRN Reason: Itching Stop: 01/08/25 17:40 Docusate Sodium (Docusate Sodium 100 Mg Cap) 100 mg PO BID [facility] Stop: 01/08/25 20:59 Last Admin: 12/13/24 08:51 Dose: 100 mg Heparin Sodium (Beef Lung) (Heparin 10 Unit/Ml 5 Ml Flush) 5 ml FLUSH PRN PRN PRN Reason: Flush Stop: 01/10/25 10:02 Last Admin: 12/13/24 06:34 Dose: 5 ml Hydromorphone HCl (Hydromorphone Inj 0.5 Mg/0.5 Ml Syr) 0.5 mg IV Q4H PRN PRN Reason: Pain or Pre PT Stop: 12/23/24 17:45 Cefazolin Sodium (Ancef 2000mg) 2,000 mg in 15 mls @ 3.75 mls/min IV Q8H [facility] Stop: 01/21/25 14:29 Last Admin: 12/13/24 06:33 Dose: 3.75 mls/min Magnesium Hydroxide (Magnesium Hydroxide Susp 30 Ml Udc) 30 ml PO Q6H PRN PRN Reason: Constipation Stop: 01/08/25 17:40 Metoclopramide HCl (Metoclopramide Hcl Inj 5 Mg/Ml 2 Ml Vial) 10 mg IV Q6H PRN PRN Reason: Nausea/Vomiting Stop: 01/08/25 17:40 Multivitamins (Multivitamin Tab) 1 tab PO QAM [facility] Stop: 01/09/25 08:59 Last Admin: 12/13/24 08:51 Dose: 1 tab Naloxone HCl (Naloxone Hcl 0.4 Mg/1 Ml Vial/Carp) 0.1 mg IV Q5M PRN PRN Reason: Oversedation/Resp Depression Stop: 01/08/25 17:45 Ondansetron HCl (Ondansetron Inj 2 Mg/Ml 2 Ml Vial) 4 mg IV Q6H PRN PRN Reason: Nausea/Vomiting Stop: 01/08/25 17:40 Oxycodone HCl (Oxycodone Hcl Ir 5 Mg Tab (Immediate Release)) 5 - 10 mg PO Q4H PRN PRN Reason: Pain or Pre PT Stop: 12/23/24 17:45 Last Admin: 12/13/24 06:33 Dose: 10 mg Rosuvastatin Calcium (Rosuvastatin Calcium 20 Mg Tab) 20 mg PO [facility] Stop: 01/08/25 20:59 Last Admin: 12/12/24 21:08 Dose: 20 mg Sennosides (Senna 8.6 Mg Tab) 17.2 mg PO [facility] Stop: 01/08/25 20:59 Last Admin: 12/12/24 21:08 Dose: 17.2 mg Tamsulosin HCl (Tamsulosin Hcl 0.4 Mg Cap) 0.4 mg PO [facility] Stop: 01/08/25 20:59 Last Admin: 12/12/24 21:08 Dose: 0.4 mg (3) Surgical wound, non healing Encounter type: initial encounter Qualified Code(s): T81.89XA - Other complications of procedures, not elsewhere classified, initial encounter
--- NOTE | 2024-12-13 10:35 | Orthopedic Progress Note ---
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 Making good progress. - Nonweightbearing to the right lower extremity in the external fixator. Range of motion as tolerated to available joints. - Elevate RLE whenever seated or supine - Continue Ancef coverage of his MSSA growing from all cultures. - Continue current pain regimen - Will transition to oral aspirin therapy at discharge for VTE prophylaxis indefinitely - PT and OT for mobilization - Second opinion by Dr Devi appreciated Dispo: Awaiting rehab placement. S/p PICC line placement Subjective .Active Problems: S/p Right tibia & fibula removal of infected hardware, I&D, stimulan beads, Ex-fix application POD 4 64 y/o male s/p above procedure. Doing well overall, pain managed and improved function. Denies fever/chills, chest pain/SOB, nausea/vomiting. Otherwise no complaints. PICC line placed. Awaiting rehab placement. Review of Systems All systems reviewed & are unremarkable except as noted in HPI & below. Physical Exam RLE: The dressings are clean and dry and intact. Dressings were changed. The wounds were well-approximated without erythema or active drainage. The question able medial edge of the anterior incision appears to be healing well. Ulcerated lesions with spotting drainage onto absorbent dressing. New dressings applied. DNVI. Pin sites mostly okay. Some crusting by the medial calcaneal pin amenable to the routine pin care. Constitutional WD/WN, vitals as above no acute distress and not intoxicated appearing Respiratory normal respiratory effort; no labored breathing Cardiovascular Extremities: normal capillary refill Results & Data Results & Data Laboratory Results . Diagnostic Findings . 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
[2024-12-13 22:26] VITALS: O2SAT 98
[2024-12-14 07:10] VITALS: BP 113/74; PULSE 78; RESP 16; TEMP 97.9
[2024-12-14 08:01] LABS: Anion Gap 5.0 (3-11); Blood Urea Nitrogen 25.0 mg/dl (6-23); Calcium 8.8 mg/dl (8.6-10.3); Carbon Dioxide 30.0 mmol/L (21-32); Chloride 102.0 mmol/L (98-107); Creatinine Clr Calc Pharmacy 73.2 ml/min; Glucose 123.0 mg/dl (70-99(Fasting)); Potassium 3.9 mmol/L (3.5-5.1); Sodium 137.0 mmol/L (136-145)
--- NOTE | 2024-12-14 08:49 | Orthopedic Progress Note ---
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 Making good progress. - Nonweightbearing to the right lower extremity in the external fixator. Range of motion as tolerated to available joints. - Elevate RLE whenever seated or supine - Continue IV abx per ID recommendations. - Continue current pain regimen - Will transition to oral aspirin therapy at discharge for VTE prophylaxis indefinitely - PT and OT for mobilization - Second opinion by Dr Devi appreciated Dispo: Awaiting rehab placement. S/p PICC line placement Subjective .Active Problems: S/p Right tibia & fibula removal of infected hardware, I&D, stimulan beads, Ex-fix application POD 5 64 y/o male s/p above procedure. Doing well overall, pain managed and improved function. Denies fever/chills, chest pain/SOB, nausea/vomiting. Otherwise no complaints. PICC line placed. Awaiting rehab placement. Review of Systems All systems reviewed & are unremarkable except as noted in HPI & below. Physical Exam . * General: Alert and oriented, no acute distress * Constitutional: well-developed, well-nourished. * Respiratory: Normal respiratory effort, no distress * Gastrointestinal: No tenderness to palpation, no rigidity or guarding. * Skin: No rash or lesion. * Neurologic: Grossly normal * Musculoskeletal: Right lower leg ex-fix intact. Pin sites clean with no evidence of infection. No drainage. Dressing to anterior incision not removed. Diffuse mild tenderness of the ankle region. Diffuse soft tissue edema. ROM ankle not assessed. AROM toe flexion/extension intact. Sensation intact plantar/dorsal foot. Brisk capillary refill. Results & Data Results & Data Laboratory Results . Diagnostic Findings . PG Care Time/CCT Total # of Minutes Spent Total Time Spent with Patient: Total time spent is greater than 50% in coordination of care (as documented) at patient's floor/unit and/or counseling patient: Coding Level of Care Code 66756 Post Operative Follow-Up Diagnoses Osteomyelitis of tibia M86.9 S/P hardware removal Z98.890 Complication associated with musculoskeletal implant T84.9XXA MSSA (methicillin susceptible Staphylococcus aureus) infection A49.01 Open fracture of distal end of tibia with nonunion S82.309M
--- NOTE | 2024-12-14 11:01 | Orthopedic Consultation ---
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 Mr. Fajardo is a very pleasant gentleman who is now postoperative day #5 status post removal of hardware with irrigation debridement and placement of antibiotic eluding drug delivery device by Dr. Coker for concerns of osteomyelitis in his right tibia status post open reduction internal fixation of an open distal tibia/fibular shaft fracture. I had a long discussion with patient regarding his current presentation. I also discussed this case with Dr. Coker. The patient currently is showing good signs of clearance of the infection considering that his CRP is trended down so significantly since his original presentation. He is currently achieving stability with the use of his external fixator and I believe this is appropriate. With regards to definitive plan for reconstructive and limb salvage management, I believe that a couple of options exist each with its own potential challenges. Intramedullary fixation may be reasonable, however this would only be if patien t is able to clear his infection. This could be an antegrade tibial nail or a retrograde TTC nail. The issue with a retrograde TTC nail is obviously that his subtalar and ankle joint would have to be sacrificed for this. The potential issue with an antegrade tibial nail may be seeding of the rest of his tibia if the patient is unable to clear his infection. Another option would be for a ringed external fixator with thin wire frames close to the fracture site to impart more stability to hopefully encourage fracture healing. I do think that this is also quite challenging as this may require a prolonged treatment period in the frame. The other surgical option would be for revision internal fixation, however this would include much larger incisions and addition of additional plates which would violate the soft tissues for a third time and dramatically increase the patient's chances of wound healing complications and need for revision surgery that could include an amputation. With all of these reconstructive options, the other consideration would be the potential need for bone grafting. Obviously, this would be contraindicated in the setting of infection to the patient would need to clear his infection first. Finally, with regards to all potential limb salvage options, the bullae that he has on his anteromedial cox also represent a very challenging situation. If these are unable to heal entirely, the patient may require flap coverage and this would need to happen at a center where there is a plastic surgeon who is willing to do this. The final consideration for this issue long-term would obviously be limb sacrificing in the form of a below-knee amputation, however the patient is quite active and as noted in his medical chart may not be mentally able to handle the sequelae of an amputation. At this point, the patient has infectious disease on board and he will require protracted period of antibiosis. Would recommend continuing to follow CRP. I do also believe that a CT scan to evaluate the fracture site would be helpful in determining appropriate reconstructive options. This order has been placed. History of Present Illness Attending Physician: Hilario Coker MD History of Present Illness This is a 64-year-old gentleman who is a patient of Dr. Coker's who is admitted currently after having hard removal from his right lower extremity. The patient's orthopedic history is significant for an open distal tibial shaft fracture treated with open reduction internal fixation about 4 months ago. The patient had a traumatic wound on the posterior medial side that did go on to heal by secondary intention using a wound VAC. The patient has been following with Dr. Coker in the office for his wounds as well as fracture healing. Patient presented to the office last week for an acute evaluation and at that time, he was noted to have developed blisters on his anteromedial leg concerning for deep infection. The patient is now status post hardware removal and application of delta frame by Dr. Coker. Dr. Coker has contacted me for recommendations with regards to definitive management. Patient notes that overall he feels excellent at this time. States he feels much more comfortable since having his hardware removed. Denies fevers or chills. Denies chest pain or shortness of breath. Allergies Allergy/AdvReac Type Severity Reaction Status Date / Time No Known Allergies Allergy Verified 12/09/24 10:54 Home Medications Medication Instructions Recorded Confirmed Type lisinopril 5 mg tablet 5 mg PO QAM 01/30/24 12/09/24 History rosuvastatin 20 mg tablet 20 mg PO HS 08/02/24 12/09/24 History acetaminophen 500 mg tablet 1,000 mg (2 x 500 mg) PO Q8H #14 08/06/24 12/09/24 R x (Tylenol Extra Strength) tabs aspirin 325 mg tablet,delayed 325 mg PO QAM #30 tabs 08/06/24 12/09/24 Rx release (Ecotrin) tamsulosin 0.4 mg capsule 0.4 mg PO HS #30 caps 09/17/24 12/09/24 Rx doxycycline hyclate 100 mg tablet 100 mg PO bid #28 tabs 12/06/24 12/09/24 Rx aspirin 81 mg tablet,delayed 81 mg PO BID #84 tabs 12/14/24 Rx release (Adult Aspirin Regimen) oxycodone 5 mg tablet 5 mg PO Q6H PRN pain #30 tabs 12/14/24 Rx Patient History Medical History Family history of reaction to anesthesia Cough Anxiety and depression Mentally challenged History of seizures History of anesthesia reaction Prediabetes HLD (hyperlipidemia) HTN (hypertension) Elevated PSA Surgical History History of tonsillectomy and adenoidectomy History of open reduction and internal fixation (ORIF) procedure Social History Smoking Status: Never smoker Second Hand Exposure: No; Do You Dip or Chew Tobacco: No; Tobacco Cessation Education Requested by Patient: No Hx Alcohol Use: No Hx Substance Use: No Preferred Language: Japanese Communication Ability: Effective Cannon Pinion Adjuster Required: No Beliefs That Will Affect Care: None Current Living Situation: Alone Current Living Situation Comment: lives right next door to brother and sister in law;they are present daily Other Information That Helps Us Care for You: No Feels Safe at Home: Yes Safety Concerns: Feels Safe At This Time Assistive Devices: Wheelchair Review of Systems Review of Systems: All systems reviewed & are unremarkable except as noted in HPI & below Physical Exam Physical Exam: On physical examination, the patient is resting comfortably in a delta frame. His wounds were examined. His surgical incisions from the larger removal are healing appropriately, however he does indeed have 2 bullae on the anteromedial aspect of his lower extremity with a fibrinous appearing material. These are not actively draining any purulence at this time. Results & Data Vital Signs (Past 12 Hours) Vital Signs Temp Pulse Resp BP Pulse Ox O2 Del Method 12/14/24 07:09 36.6 C 78 16 113/74 98 Room Air Laboratory Results Trended CRP from a high of the 6 mg/dL to most recent value of 1.33 mg/dL Diagnostic Findings X-rays of the right ankle and tib-fib over the course of the last 4 months were personally interpreted and reviewed. The patient sustained a distal tibial shaft fracture that was open in July. He underwent open reduction internal fixation of the the tibia and fibula with good radiographic result. Most recent x-rays demonstrate subsequent removal of the hardware with continued noted fracture gap.
--- NOTE | 2024-12-14 14:48 | CT Scan Report ---
CT tib/fib RT wo con CLINICAL HISTORY: eval articular surface tibia . Fracture. COMPARISON STUDY: X-ray of 12/09/2024 FINDINGS: External fixator remains. There are stable hardware tracts at the distal tibia and fibula. Distal tibia and fibula metaphyseal fractures have stable alignment with minimal displacement. Stable antibiotic beads within the distal tibia fracture. No progressive osseous destructive changes seen. There is no fracture at the distal tibia articular surface. There is a small area of minimal depressi on at the articular surface of the lateral tibial plateau series 300. Image 49. No other significant abnormality seen at the proximal articular surface. There are minimal degenerative changes at the kne e and ankle. No soft tissue hematoma seen. IMPRESSION: No adverse change seen. Otherwise as described. ACT 112: Negative or not required by law. Electronically signed by: Brayan Rico M.D. 12/14/2024 2:45 PM
--- NOTE | 2024-12-15 13:43 | Discharge Summary ---
Date of Service December 15, 2024 Admission HPI (Per Admitting) 64-year-old male who is now 4 months out from an acute open reduction and internal fixation following irrigation debridement of an open distal tibia shaft and closed segmental fibula fracture presented acutely to clinic at the recommendation of his wound care nurse for swelling and blistering of his leg. Physical exam and radiographs were concerning for deep infection and loosening of the hardware, so expedited irrigation debridement and hardware removal was indicated. Reviewed the risks the benefits and alternatives. We reviewed that the plan may include an external fixation frame should the fracture not be sufficiently healed. He and his primary caregivers, brother and [id number], were in agreement to proceed with surgical care that I described. Informed consent was reviewed and confirmed this morning to proceed. Admission Exam (Per Admitting) Admitted post operatively with external fixation in place RLE. Principal Diagnosis Same as "Discharge Diagnosis" noted below under Discharge Instructions. Discharge Exam . * General: Alert and oriented, no acute distress * Constitutional: well-developed, well-nourished. * Respiratory: Normal respiratory effort, no distress * Gastrointestinal: No tenderness to palpation, no rigidity or guarding. * Skin: No rash or lesion. * Neurologic: Grossly normal * Musculoskeletal: Right lower leg ex-fix intact. Pin sites clean with no evidence of infection. No drainage. Dressing to anterior incision not removed. Diffuse mild tenderness of the ankle region. Diffuse soft tissue edema. ROM ankle not assessed. AROM toe flexion/extension intact. Sensation intact plantar/dorsal foot. Brisk capillary refill. Discharge Data Consultations 12/09/24 17:46 Consult Internal Medicine Routine 12/09/24 17:51 Consult Infectious Diseases Routine 12/09/24 17:57 Consult Wound Care Provider Routine 12/12/24 10:09 Consult Orthopedic Surgery Routine Procedures Performed Operation Date: 12/09/24 12:25 Actual Procedures p Right Distal Tibia and Fibula Hardware Removal, Irrigation and Debridement, Application of external fixator and stimulan beads(Right) - Hilario Coker MD Ordered Studies 12/09/24 05:00 US - OR guided needle placemen Routine 12/09/24 12:25 FL ankle RT min 3V RTN Routine 12/14/24 11:18 CT tib/fib RT wo con Routine Hospital Course (1) 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 Activity: Per Instructions section Bathing Comment: May shower. Let soap and water around pin sites. Pat dry. No submersion. Weightbearing: Right non-weightbearing Non-emergency contact: Primary Care Provider and Surgeon Call non-emergency contact if: your pain is worsening, your temperature is above 101 and your wound has increased drainage Follow-up/Referrals: Hilario Coker MD [Surgeon] - Caleb Alegre CRNP [Primary Care Provider] - Diet: Regular Addtl Attending Provider Instructions: WEIGHTBEARING Do not place weight on the right foot. Regularly move your foot and wiggle your toes as much as tolerable. WOUND CARE May leave surgical incisions open and uncovered if no drainage for greater than 24 hours. Continue changing dressings daily on the blister wounds until dry for 24 hours. PIN CARE Please clean around the base of the pins daily with a Q-tip. Use a solution of 50:50 peroxide and saline on the Q-tip and wipe away any crusting drainage. If the drainage increases and becomes purulent, please call the Orthopedic Clinic. Pin site infections can be common and are usually treated with simple antibiotics. You may shower with the external fixator in place. Allow soap and water to run around the pins and pat dry. Do not apply any occlusive dressings. Do not submerse the pin sites under water. ANTIBIOTICS Antibiotic treatment through your IV must continue for at least 6 weeks. An outpatient appointment with [facility] Infection Disease will be arranged no later than 6 weeks from starting your antibiotics in the hospital. Lab studies will be needed to monitor your treatment and safety of the medication: 1. Complete Blood Count with differential (CBC) 2. Comprehensive Metabolic Profile (CMP) Results need to be faxed to [facility] ID at [phone] Pending Studies at Discharge: No Stand-Alone Forms: My [facility] Skilled Items Patient informed of condition?: Yes DNR: No Discharge Level of Care: Skilled Communicable Disease: No Discharge Prognosis: Improving Lines: PICC Urinary Catheter: No Medications and DC Order Prescriptions: New aspirin [Adult Aspirin Regimen] 81 mg tablet,delayed release (DR/EC) 81 mg PO BID Qty: 84 0RF oxycodone 5 mg tablet 5 mg PO Q6H PRN (Reason: pain) Qty: 30 0RF cefazolin 2 gram recon soln 2 g IV Q8H 14 Days Continued tamsulosin 0.4 mg capsule 0.4 mg PO HS Qty: 30 5RF lisinopril 5 mg tablet 5 mg PO QAM rosuvastatin 20 mg tablet 20 mg PO HS acetaminophen [Tylenol Extra Strength] 500 mg Tablet 1,000 mg PO Q8H Qty: 14 0RF Discontinued doxycycline hyclate 100 mg tablet 100 mg PO bid Qty: 28 0RF Patient Comments: for 10 days, started 12/06/24 aspirin [Ecotrin] 325 mg Tablet,Delayed Release (Dr/Ec) 325 mg PO QAM Qty: 30 0RF Discharge Orders: Discharge Order (Routine); Ordered 12/14/24 Ordered By: Hilario Tomlin/Other Patient Handouts: Prediabetes, 5 Steps for Eating Healthier Admission Data Admit Date/Time: 12/09/24 17:42 Attending Provider: Hilario Coker Admit Provider: Hilario Coker Primary Care Provider: Caleb Alegre Other Providers: [place]; Efrem Devi; Charles Bowers; Soraya Santiago; Nathen Lewis Other Interventions: Discharge Summary Assessment (RN) Last Done: 12/14/24 13:25
--- NOTE | 2024-12-16 09:30 | Discharge Summary ---
Date of Service December 16, 2024 Admission HPI (Per Admitting) 64-year-old male who is now 4 months out from an acute open reduction and internal fixation following irrigation debridement of an open distal tibia shaft and closed segmental fibula fracture presented acutely to clinic at the recommendation of his wound care nurse for swelling and blistering of his leg. Physical exam and radiographs were concerning for deep infection and loosening of the hardware, so expedited irrigation debridement and hardware removal was indicated. Reviewed the risks the benefits and alternatives. We reviewed that the plan may include an external fixation frame should the fracture not be sufficiently healed. He and his primary caregivers, brother and [id number], were in agreement to proceed with surgical care that I described. Informed consent was reviewed and confirmed this morning to proceed. Admission Exam (Per Admitting) Admitted post operatively with external fixation in place RLE. Principal Diagnosis Same as "Discharge Diagnosis" noted below under Discharge Instructions. Discharge Exam . * General: Alert and oriented, no acute distress * Constitutional: well-developed, well-nourished. * Respiratory: Normal respiratory effort, no distress * Gastrointestinal: No tenderness to palpation, no rigidity or guarding. * Skin: No rash or lesion. * Neurologic: Grossly normal * Musculoskeletal: Right lower leg ex-fix intact. Pin sites clean with no evidence of infection. No drainage. Dressing to anterior incision not removed. Diffuse mild tenderness of the ankle region. Diffuse soft tissue edema. ROM ankle not assessed. AROM toe flexion/extension intact. Sensation intact plantar/dorsal foot. Brisk capillary refill. Discharge Data Consultations 12/09/24 17:46 Consult Internal Medicine Routine 12/09/24 17:51 Consult Infectious Diseases Routine 12/09/24 17:57 Consult Wound Care Provider Routine 12/12/24 10:09 Consult Orthopedic Surgery Routine Procedures Performed Operation Date: 12/09/24 12:25 Actual Procedures p Right Distal Tibia and Fibula Hardware Removal, Irrigation and Debridement, Application of external fixator and stimulan beads(Right) - Hilario Coker MD Ordered Studies 12/09/24 05:00 US - OR guided needle placemen Routine 12/09/24 12:25 FL ankle RT min 3V RTN Routine 12/14/24 11:18 CT tib/fib RT wo con Routine Hospital Course (1) 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 Following surgery patient was managing the floor with improved pain control daily, daily pin site care, and ambulation with PT/OT teams. Infectious disease consult was obtained following culture data, IV antibiotics were tailored and plan was developed. PICC line placed. During hospitalization second opinion was also obtained from Dr. Devi to discuss definitive fixation following clearance of deep infection. Patient medically stable for discharge following ID plan and PICC placement. He was discharged in stable condition to [facility] for continued management of of his Ex-Fix and IV antibiotic therapy. All questions answered. Patient will follow-up as scheduled with Dr. Coker team. PG Care Time/CCT Total # of Minutes Spent Total Time Spent with Patient: Total time spent is greater than 50% in coordination of care (as documented) at patient's floor/unit and/or counseling patient: Discharge Plan Discharge Items Patient Disposition: Transfer Inpatient Rehab Fac Reason For Visit: Abscess of Lower Leg, Complication Associated with Discharge Diagnosis: Right distal tibia fracture septic nonunion, s/p I&D with hardware removal and implantation of antibiotic-eluting absorbable calcium sulfate beds. Activity: Per Instructions section Bathing Comment: May shower. Let soap and water around pin sites. Pat dry. No submersion. Weightbearing: Right non-weightbearing Non-emergency contact: Primary Care Provider and Surgeon Call non-emergency contact if: your pain is worsening, your temperature is above 101 and your wound has increased drainage Follow-up/Referrals: Hilario Coker MD [Surgeon] - Caleb Alegre CRNP [Primary Care Provider] - Diet: Regular Addtl Attending Provider Instructions: WEIGHTBEARING Do not place weight on the right foot. Regularly move your foot and wiggle your toes as much as tolerable. WOUND CARE May leave surgical incisions open and uncovered if no drainage for greater than 24 hours. Continue changing dressings daily on the blister wounds until dry for 24 hours. PIN CARE Please clean around the base of the pins daily with a Q-tip. Use a solution of 50:50 peroxide and saline on the Q-tip and wipe away any crusting drainage. If the drainage increases and becomes purulent, please call the Orthopedic Clinic. Pin site infections can be common and are usually treated with simple antibiotics. You may shower with the external fixator in place. Allow soap and water to run around the pins and pat dry. Do not apply any occlusive dressings. Do not submerse the pin sites under water. ANTIBIOTICS Antibiotic treatment through your IV must continue for at least 6 weeks. An outpatient appointment with [facility] Infection Disease will be arranged no later than 6 weeks from starting your antibiotics in the hospital. Lab studies will be needed to monitor your treatment and safety of the medication: 1. Complete Blood Count with differential (CBC) 2. Comprehensive Metabolic Profile (CMP) Results need to be faxed to [facility] at [phone] Pending Studies at Discharge: No Stand-Alone Forms: My [facility] Skilled Items Patient informed of condition?: Yes DNR: No Discharge Level of Care: Skilled Communicable Disease: No Discharge Prognosis: Improving Lines: PICC Urinary Catheter: No Medications and DC Order Prescriptions: New aspirin [Adult Aspirin Regimen] 81 mg tablet,delayed release (DR/EC) 81 mg PO BID Qty: 84 0RF oxycodone 5 mg tablet 5 mg PO Q6H PRN (Reason: pain) Qty: 30 0RF cefazolin 2 gram recon soln 2 g IV Q8H 14 Days Continued tamsulosin 0.4 mg capsule 0.4 mg PO HS Qty: 30 5RF lisinopril 5 mg tablet 5 mg PO QAM rosuvastatin 20 mg tablet 20 mg PO HS acetaminophen [Tylenol Extra Strength] 500 mg Tablet 1,000 mg PO Q8H Qty: 14 0RF Discontinued doxycycline hyclate 100 mg tablet 100 mg PO bid Qty: 28 0RF Patient Comments: for 10 days, started 12/06/24 aspirin [Ecotrin] 325 mg Tablet,Delayed Release (Dr/Ec) 325 mg PO QAM Qty: 30 0RF Discharge Orders: Discharge Order (Routine); Ordered 12/14/24 Ordered By: Hilario Tomlin/Other Patient Handouts: Prediabetes, 5 Steps for Eating Healthier Admission Data Admit Date/Time: 12/09/24 17:42 Attending Provider: Hilario Coker Admit Provider: Hilario Coker Primary Care Provider: Caleb Alegre Other Providers: [place]; Efrem Devi; Charles Bowers; Soraya Santiago; Nathen Lewis Other Interventions: Discharge Summary Assessment (RN) Last Done: 12/14/24 13:25
== END 2024-12-14 14:27 | DRG 463 ==
LOC: ASU 10:40 → 3N 17:42